=== PATIENT | female | born 1995 | race Two or more races ===

== ENCOUNTER 2024-08-16 15:10 | Emergency (ER) | payer MEDICAID, SELFPAY ==
[2024-08-16 15:17] VITALS: BP 125/81; PULSE 79; RESP 18; TEMP 36.9; O2SAT 99
--- NOTE | 2024-08-16 15:20 | XR_ITS ---
EXAMINATION: US OB <= 14 weeks fetus ORDERING PROVIDER: SONNY Mendoza HISTORY: vaginal bleeding TECHNIQUE: Multiplanar still ultrasonography of the pelvis was performed using grayscale imaging, supplemented by color and spectral Doppler as needed. Images were performed transabdominally . COMPARISON: None. FINDINGS: Last menstrual period 07/06/2024. Uterus measures 8.4 x 4.2 x 5.2 cm. There is an intrauterine fluid collection with irregular contour with mean diameter 1.7 cm. No yolk sac seen. No definite pole identified. Right ovary measures 2.0 x 1.8 x 1.3 cm and demonstrates Doppler signal. Left ovary measures 4.0 x 2.6 x 2.1 cm and demonstrates both color and Doppler signal. No free fluid. No adnexal masses. IMPRESSION: Irregular intrauterine fluid collection, possibly representing a gestational sac without yolk sac or pole. Given lack of comparison imaging, laboratory values, and transvaginal imaging, differential includes nonvisualized intrauterine , failed , and nonvisualized ectopic . Recommend close clinical follow-up, repeat beta-hCG imaging, and follow-up imaging as clinically indicated.
[2024-08-16 15:32] LABS: Collection Type, Urine Clean Catch
--- NOTE | 2024-08-16 15:32 | PD.EDPREG ---
ED OB Contraction Preg RMI/HPI General Chief complaint: OB/Uterine Contractions Stated complaint: SPOTTING/CRAMPING X 3 DAYS, PREG 6 WKS, Time Seen by Provider: 08/16/24 15:20 Source: patient Arrival date/time: 08/16/24 15:10 29-year-old female with no known medical history presents to the emergency room with a chief complaint of vaginal spotting and lower abdominal cramping x 3 days. Patient is currently 6 weeks she is a G2, P1. Mode of arrival: ambulatory Limitations: no limitations Related Data Home Medications ?Medication ?Instructions ?Recorded ?Confirmed metformin 500 mg tablet 1 tab PO QDAY 05/19/18 06/20/18 vit 122-ferrous fumarate 1 tab PO QDAY 05/19/18 06/20/18 27 mg iron-folic acid 800 mcg tablet ( Multi) Allergies Allergy/AdvReac Type Severity Reaction Status Date / Time No Known Allergies Allergy Verified 08/16/24 15:14 ED Exam General Limitations: Present no limitations Course Orders Category Date Time Status US OB <= 14 weeks fetus Stat Exams 08/16/24 15:20 Ordered ABO/RH Type Stat Lab 08/16/24 15:20 Ordered Beta HCG,Quantitative Stat Lab 08/16/24 15:20 Ordered CBC Stat Lab 08/16/24 15:20 Ordered CMP [Comprehensive Metabolic Panel] Stat Lab 08/16/24 15:20 Ordered UA [Urinalysis] Stat Lab 08/16/24 15:27 Received Vital Signs Vital signs: Vital Signs Temperature 98.4 F 08/16/24 15:17 Pulse Rate 79 08/16/24 15:17 Respiratory Rate 18 08/16/24 15:17 Blood Pressure 125/81 08/16/24 15:17 Pulse Oximetry (%) 99 08/16/24 15:17 Oxygen Delivery Method Room Air 08/16/24 15:17 Discharge Plan Prescriptions/Referrals Prescriptions/Med Rec: No Action metformin 500 mg Tablet 1 tab PO QDAY [id number] [ Multi] 27-800 mg-mcg Tablet 1 tab PO QDAY Patient/Caregiver Discharge Instructions Print Language: Setswana
[2024-08-16 15:41] LABS: Basophils % (Auto) 0 % (0-2.5); Eosinophils # (Auto) 0.1 Thou/mm3 (0.0-0.5); Eosinophils % (Auto) 1 % (0-10); Hematocrit 37.9 % (36.0-46.0); Hemoglobin 12.9 g/dL (12.0-16.0); Immature Granulocytes % (Auto) 0 % (0-0); Immature Granulocytes Auto 0.03 Thou/mm3 (0.00-0.00); Lymphocytes # (Auto) 2.6 Thou/mm3 (1.0-4.8); Lymphocytes % (Auto) 32 % (10-50); Mean Corpuscular Hemoglobin 29.5 pg (25.0-35.0); Mean Corpuscular Volume 87 fL (80-100); Monocytes # (Auto) 0.6 Thou/mm3 (0.0-0.8); Monocytes % (Auto) 7 % (0-12); Neutrophils # (Auto) 4.8 Thou/mm3 (1.8-7.7); Neutrophils % (Auto) 59 % (37-80); Nucleated Red Blood Cell % 0 /100 WBC (0); Platelet Count 315 Thou/mm3 (140-440); RDW Standard Deviation 41.9 fL (36.4-46.3); Red Blood Count 4.38 Miln/mm3 (4.00-5.20); White Blood Count 8.1 Thou/mm3 (3.6-11.0)
[2024-08-16 15:46] LABS: Bilirubin,Urine Negative (Negative); Blood,Urine 2+ (Negative); Clarity,Urine Clear (Clear/Hazy); Color,Urine Lt-Yellow (Lt Yel-Yel); Glucose, Urine Negative (Negative); Ketones,Urine Negative (Negative); Leukocyte Esterase,Urine Negative (Negative); Nitrite,Urine Negative (Negative); Protein,Urine Negative (Neg - Trace); RBC,Urine 2 /hpf (0-3); Specific Gravity,Urine 1.008 (1.001-1.035); Squamous Epithelial Cell,Urine 5 /hpf (0-5); Urobilinogen,Urine Negative mg/dL (0.0-1.0); WBC,Urine 1 /hpf (0-5)
[2024-08-16 16:05] LABS: Alanine Aminotransferase 19 U/L (10-49); Albumin, Serum 4.5 gm/dL (3.5-5.0); Albumin/Globulin Ratio 1.6 (1.2-2.2); Alkaline Phosphatase 69 U/L (46-116); Anion Gap 9 (7-16); Aspartate Amino Transferase 21 U/L (0-34); BUN/Creatinine Ratio 13 Ratio (12-20); Bilirubin,Total 0.3 mg/dL (0.3-1.2); Blood Urea Nitrogen 8 mg/dL (9-23); Carbon Dioxide 25.1 mMol/L (20.0-31.0); Chloride 105 mMol/L (98-107); Creatinine (Component) 0.6 mg/dL (0.6-1.3); Globulin 2.9 gm/dL (2.3-3.5); Glucose 88 mg/dL (74-106); Osmolality,Calculated 274 (275-295); Potassium 3.4 mMol/L (3.4-5.1); Sodium 139 mMol/L (136-145); Total Protein 7.4 gm/dL (5.7-8.2); eGFR > 60 See Note
--- NOTE | 2024-08-16 16:41 | XR_ITS ---
EXAMINATION: US OB transvaginal ORDERING PROVIDER: SONNY Mendoza HISTORY: Vaginal bleeding and pelvic pain x3 days. TECHNIQUE: Multiplanar still ultrasonography of the pelvis was performed using grayscale imaging, supplemented by color and spectral Doppler as needed. Images were performed transvaginally. COMPARISON: Same day transabdominal pelvic ultrasound. FINDINGS: Last menstrual period 07/06/2024. Uterus measures 8.3 x 4.5 x 5.5 cm. Gravid uterus with 2 intrauterine fluid collections. There is a septation measuring up to 2 mm. 2 separate yolk sacs are identified. No subchorionic hemorrhage is identified. Sac A measures 1.2 cm correlating with sonographic age of 6 weeks 0 days. Sac B also measures 1.2 cm corresponding to sonographic age is 6 weeks 0 days. No pole is seen in either. Clinical dates 5 weeks 6 days. Right ovary measures 2.9 x 2.3 x 3.0 cm and demonstrates Doppler signal. Left ovary measures 2.8 x 3.1 x 2.9 cm and demonstrates both color and Doppler signal. Probable left corpus luteum. No free fluid. No adnexal masses. IMPRESSION: Multifetal with 2 yolk sacs identified, but no pole yet seen. There is concordance with clinical and sonographic dates. Favor dichorionic diamniotic , though differential also includes monochorionic diamniotic . Recommend close clinical and imaging follow-up.
[2024-08-16 16:46] LABS: Beta HCG,Quantitative 23747 mIU/mL (<5.0)
--- NOTE | 2024-08-16 20:55 | PD.EDPREG ---
ED OB Contraction Preg RMI/HPI General Chief complaint: OB/Uterine Contractions Stated complaint: SPOTTING/CRAMPING X 3 DAYS, PREG 6 WKS, Time Seen by Provider: 08/16/24 15:20 Source: patient Arrival date/time: 08/16/24 15:10 This is a 29-year-old female that comes in with complaints of abdominal cramping and some spotting for the last 3 days. Patient thinks she is approximately 6 weeks . Patient is a 2 para 1. Mode of arrival: ambulatory Limitations: no limitations Related Data Home Medications ?Medication ?Instructions ?Recorded ?Confirmed metformin 500 mg tablet 1 tab PO QDAY 05/19/18 06/20/18 vit 122-ferrous fumarate 1 tab PO QDAY 05/19/18 06/20/18 27 mg iron-folic acid 800 mcg tablet ( Multi) Allergies Allergy/AdvReac Type Severity Reaction Status Date / Time No Known Allergies Allergy Verified 08/16/24 15:14 ED Exam General Limitations: Present no limitations Course Orders Category Date Time Status US OB <= 14 weeks fetus Stat Exams 08/16/24 15:20 Completed US OB transvaginal Stat Exams 08/16/24 16:41 Completed ABO/RH Type Stat Lab 08/16/24 15:30 Completed Beta HCG,Quantitative Stat Lab 08/16/24 15:30 Completed CBC Stat Lab 08/16/24 15:30 Completed CMP [Comprehensive Metabolic Panel] Stat Lab 08/16/24 15:30 Completed UA [Urinalysis] Stat Lab 08/16/24 15:27 Completed Vital Signs Vital signs: Vital Signs Temperature 98.4 F 08/16/24 15:17 Pulse Rate 79 08/16/24 15:17 Respiratory Rate 18 08/16/24 15:17 Blood Pressure 125/81 08/16/24 15:17 Pulse Oximetry (%) 99 08/16/24 15:17 Oxygen Delivery Method Room Air 08/16/24 15:17 OB/Uterine Contractions MDM Narrative MDM Narrative:: US: IMPRESSION: Irregular intrauterine fluid collection, possibly representing a gestational sac without yolk sac or pole. Given lack of comparison imaging, laboratory values, and transvaginal imaging, differential includes nonvisualized intrauterine , failed , and nonvisualized ectopic . Recommend close clinical follow-up, repeat beta-hCG imaging, and follow-up imaging as clinically indicated. Transvaginal US: FINDINGS: Last menstrual period 07/06/2024. Uterus measures 8.3 x 4.5 x 5.5 cm. Gravid uterus with 2 intrauterine fluid collections. There is a septation measuring up to 2 mm. 2 separate yolk sacs are identified. No subchorionic hemorrhage is identified. Sac A measures 1.2 cm correlating with sonographic age of 6 weeks 0 days. Sac B also measures 1.2 cm corresponding to sonographic age is 6 weeks 0 days. No pole is seen in either. Clinical dates 5 weeks 6 days. Right ovary measures 2.9 x 2.3 x 3.0 cm and demonstrates Doppler signal. Left ovary measures 2.8 x 3.1 x 2.9 cm and demonstrates both color and Doppler signal. Probable left corpus luteum. No free fluid. No adnexal masses. IMPRESSION: Multifetal with 2 yolk sacs identified, but no pole yet seen. There is concordance with clinical and sonographic dates. Favor dichorionic diamniotic , though differential also includes monochorionic diamniotic . Recommend close clinical and imaging follow-up. Patient's white count is 8.1, hemoglobin and hematocrit is 12.9 and 37.9 platelet count is 315. Patient's BNP unremarkable beta-hCG quant is 23,747 urine shows some blood but otherwise unremarkable. Patient is O+. I discussed with patient at length. 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 I will take her off work until next week on Wednesday.. I let her know that she is at risk for losing . Patient verbalizes understanding. Will send patient home at this time. Patient having no urinary symptoms at this time. Patient feels comfortable going home at this time. Discharge Plan Plan Patient Disposition: HOME (Self Care) Patient condition on transfer: Stable Prescriptions/Referrals Prescriptions/Med Rec: No Action metformin 500 mg Tablet 1 tab PO QDAY [id number] [ Multi] 27-800 mg-mcg Tablet 1 tab PO QDAY Referrals: Bravo Ortega MD [Primary Care Provider] - In 1 week Problem List Clinical Impression: Threatened miscarriage, Patient/Caregiver Discharge Instructions Discharge Activity: activity as tolerated Education Materials: Your First Trimester ..., Understanding Miscarriage ... Additional Instructions: Jaime un gladis con ramsey medico de cabecera en las proximas 24-48 horas. Regrese a la main de emergencias si hay evidencia de que los signos o sintomas empeoran. US: IMPRESSION: Irregular intrauterine fluid collection, possibly representing a gestational sac without yolk sac or pole. Given lack of comparison imaging, laboratory values, and transvaginal imaging, differential includes nonvisualized intrauterine , failed , and nonvisualized ectopic . Recommend close clinical follow-up, repeat beta-hCG imaging, and follow-up imaging as clinically indicated. Transvaginal US: FINDINGS: Last menstrual period 07/06/2024. Uterus measures 8.3 x 4.5 x 5.5 cm. Gravid uterus with 2 intrauterine fluid collections. There is a septation measuring up to 2 mm. 2 separate yolk sacs are identified. No subchorionic hemorrhage is identified. Sac A measures 1.2 cm correlating with sonographic age of 6 weeks 0 days. Sac B also measures 1.2 cm corresponding to sonographic age is 6 weeks 0 days. No pole is seen in either. Clinical dates 5 weeks 6 days. Right ovary measures 2.9 x 2.3 x 3.0 cm and demonstrates Doppler signal. Left ovary measures 2.8 x 3.1 x 2.9 cm and demonstrates both color and Doppler signal. Probable left corpus luteum. No free fluid. No adnexal masses. IMPRESSION: Multifetal with 2 yolk sacs identified, but no pole yet seen. There is concordance with clinical and sonographic dates. Favor dichorionic diamniotic , though differential also includes monochorionic diamniotic . Recommend close clinical and imaging follow-up. Print Language: Irish Stand Alone Forms: Bren Award Info., Work/School Release, Patient Portal Info Letter PA/SONNY Supervising Physician PA/SONNY Supervising Physician: brittany
[2024-08-16 21:08] VITALS: BP 120/80; PULSE 92; RESP 19; TEMP 36.9; O2SAT 98
--- NOTE | 2024-08-20 06:20 | PD.EDRME ---
Rapid Medical Screening Exam RME Arrival date/time: 08/16/24 15:10 29-year-old female with no known medical history presents to the emergency room with a chief complaint of vaginal spotting and lower abdominal cramping x 3 days. Patient is currently 6 weeks she is a G2, P1. I have greeted and performed a focused initial assessment of this patient. A comprehensive ED assessment and evaluation of the patient, analysis of all test results, and completion of the medical decision making process will be conducted by additional ED providers. Chief Complaint: OB/Uterine Contractions Time Seen by Provider: 08/16/24 15:20 Vital signs: Vital Signs Temperature 98.4 F 08/16/24 15:17 Pulse Rate 79 08/16/24 15:17 Respiratory Rate 18 08/16/24 15:17 Blood Pressure 125/81 08/16/24 15:17 Pulse Oximetry (%) 99 08/16/24 15:17 Oxygen Delivery Method Room Air 08/16/24 15:17 Vital signs reviewed by provider: Yes
== END 2024-08-16 21:27 | disposition home or self-care (01) ==
PROVIDERS: Nurse Practitioner Family; Emergency Provider Emergency Medicine; PCP Obstetrics & Gynecology
DX: O20.0 Threatened abortion (principal); Z3A.01 Less than 8 weeks gestation of pregnancy
CPT/HCPCS: 36415; 76801; 76817; 80053; 81001; 84702; 85025; 86900; 86901; 99284

== ENCOUNTER 2025-01-24 14:27 | Outpatient (AMB) | payer MEDICAID, SELFPAY ==
--- NOTE | 2025-01-24 14:39 | AMB.OBINITIA ---
Vital Signs 01/24/25 14:44 Height 1.55 m Height Method Stated Weight 76.771 kg Weight Measurement Method Standing Scale BMI 31.9 BP 111/69 Blood Pressure Source Automatic Cuff Blood Pressure Location Left Upper Arm Position Sitting Respiration 18 Pulse 91 Pulse Source Monitor Temp 97.9 F Temp Source Oral Pulse Oximetry (%) 96 Oxygen Delivery Method Room Air Allergies/Home Meds Allergies & Medications Allergies No Known Allergies Allergy (Verified 01/24/25 14:45) Medication Reconciliation metformin 500 mg tablet 1 tab PO QDAY 05/19/18 [History Confirmed 01/24/25] vit 122-ferrous fumarate 27 mg iron-folic acid 800 mcg tablet ( Multi) 1 tab PO QDAY 05/19/18 [History Confirmed 01/24/25] Intake Visit Data Collection New Patient or Established: Established Patient (seen at [facility] within 3 years) Reason for Visit:: CARE Seen by Clinical Staff ONLY (RN/MA): No Customer Relations Consultant Required: Yes Customer Relations Consultant's name/title: TONYA CHOI Do You Feel Safe at Home: Yes Authorities Contacted: N/A PCP or OBGYN visit in last 3 months: Yes Hx Now: Yes Are you currently on any form of Control: No Last menstrual period: 07/06/24 Pain Present Currently: No Pain Scale Used: Orr-Oconnor/Numerical Pain scale:: 0 Smoking Status Smoking Status: Never smoker Questionnaires Covid-19 Vaccine Questionnaire Has patient been vacinated for Covid-19 Have you been vacinated for Covid-19: Yes PHQ-9 PHQ-2 Over the last 2 weeks, how often have you been bothered by any of the following problems? 1. Little interest or pleasure in doing things: not at all 2. Feeling down, depressed, or hopeless: not at all Total score: 0 PHQ-9 3. Trouble falling or staying asleep, or sleeping too much: Not at all 4. Feeling tired or having little energy: Not at all 5. Poor appetite or overeating: Not at all 6. Feeling bad about yourself - or that you are a failure or have let yourself or your family down: Not at all 7. Trouble concentrating on things, such as reading the newspaper or watching television: Not at all 8. Moving or speaking so slowly that other people could have noticed? - Or the opposite - being so fidgety or restless that you have been moving around a lot more than usual: not at all 9. Thoughts that you would be better off or of hurting yourself in some way: Not at all Total score: 0 Source: Developed by Drs. Bashir Cantrell, Yelena Quintero, Blaze Belle and colleagues, with an educational perla from [employer]. Depression screen completed yes Social History Living Situation History Marital Status: Life Partner Lives With: Family Housing: House Tobacco History Smoking Status: Never smoker Second Hand Smoke Exposure: No Alcohol History Alcohol Intake: Never Domestic Abuse History Do You Feel Safe at Home: Yes History of Present Illness HPI Narrative Patient is a woman with a history of previous and gestational diabetes, presenting for transfer of care from Dr. Ortega at [facility]. She is currently 1001 with a due date of 04/29/2025 established by first-trimester ultrasound. The patient's initially started as twins, but one fetus did not develop further. She has a history of gestational diabetes and is currently monitoring her blood sugar levels at home, having started yesterday. Recently, she was hospitalized for six days due to kidney stones. She is currently taking amoxicillin, metformin, iron, fluconazole, and metronidazole as prescribed by Dr. Ortega. She expresses a desire to return to work but needs a letter stating she is open to working but not going back at this time. Her benefits have ended, and she requires documentation from today's date to address this issue. Medical History: - Gestational diabetes - Kidney stones, requiring hospitalization for six days Surgical History: - section performed by Dr. 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: Past Medical History Past Medical History: No Hx Neurological Disorders, No Hx Breast Cancer, No Hx Cardiac Disorders, No Hx Blood Disorders, No Hx Gastrointestinal Disorders, No Hx Renal Disease, No Hx Diabetes Mellitus Type 1 and Yes Hx Diabetes Mellitus Type 2 (PARENTS TYPE UNKNOWN TAKE ORAL ANTIDIABETIC MEDS) OB Initial Visit OB Flowsheet OB Flowsheet Initial Weight: Not Recorded Date <del>?</del> EGA Weight BP Alb Glu CTX Pres Fundal ht FHR Mov Dilation Station Effacement Hx Notes Visit Note 01/24/25 <del>?</del> 26w 1d 76.771 kg 111/69 absent unknown 27 145 active 26w w/ hx of prior CS, GDM, and single IUFD (initial twin gestation); recent admission for kidney stones. FHR nl Plan: FU 2w, refer ZULY Pratt, monitor at hospital, plan CS ~38?39w, continue amoxicillin, metformin, Fe, fluconazole, metronidazole; review glucose logs; extend disability with letter. Menstrual History Menstrual reliability: definite Flow: normal Menstrual regularity: regular Monthly: Yes Age at menarche: 12 On control pills at conception: No Associated symptoms (LMP): Reports fatigue OB History : 2 Para: 1 # of Living Children: 0 Delivery History 1st : Child's name: ALIZE date: 06/18/18 sex: female Gestational age at delivery (weeks): 39 Delivery type: Delivery complications: NONE History of depression before or after : No Infection History & Risk Evaluation History of STDs: none Genetic Screening & History Genetic Screening/Teratology Counseling - Includes patient, baby's father, or anyone in either family with: 1. Patient's age 35 years or older as of estimated date of delivery: No 2. Thalassemia (Maori, Portuguese, Mediterranean, or Background); MCV less than 80: No 3. Neural Tube Defect (Meningomyelocele, Spina Bifida, or Anencephaly): No 4. Congenital Heart Defect: No 5. Down Syndrome: No 6. Vik-Sachs (Ashkenazi Jew, Cajun, Wolof Marshallese): No 7. Noel Disease (Ashkenazi Jew): No 8. Familial Dysautonomia (Ashkenazi Jew): No 9. Sickle Cell Disease or Trait (): No 10. Hemophilia or other blood disorders: No 11. Muscular Dystrophy: No 12. Cystic Fibrosis: No 13. Chet's Chorea: No 14. Mental Retardation/Autism: No 15. Other inherited genetic or chromosomal disorder: No 16. Maternal Metabolic Disorder (EG,TYPE 1 Diabetes, PKU): No 17. Patient or baby's father had a child with defects not listed above: No 18. Recurrent loss or a stillbirth: No 19. Medications (including supplements, vitamins, herbs or otc drugs)/illicit/recreational drugs/alcohol since last menstrual period: No 20. Any other: No Infection History 1. Live with someone with TB or exposed to TB: No 2. Rash or viral illness since last menstrual period: No 3. Hepatitis B,C: No Other (see comments) Source: [employer] Review of Systems Constitutional Constitutional: Reports fatigue Endocrine Endocrine: Reports fatigue Office Procedures OB Clinic LOC & Office Proc's Nursing/Assessment Patient Status: Established Patient OB Clinic Nursing Assessment: Medication Reconciliation, Update PMH in EMR and Vital Signs OB Clinic Coordination of Care: Complex Care and Chronic Disease 1-5, Consent,records obtained, informed consent, Education Simp Pt/Fam, Lab and Imaging orders, Results/Orders obtained and Staff clarify orders Special Needs: Heart tones Established Patient Charge Established Patient Point Assignment: 135 Established Patient Point Charge: EP Level 4 (120-155) Assessment & Plan Diagnosis / Problem List (1) Supervision of high risk , unspecified, third trimester: Status: Acute Plan , intrauterine, 26 weeks Assessment: Patient is at 26 weeks gestation based on last menstrual period of 09/03/2024, with due date established by first-trimester ultrasound as 04/29/2025. This is a high-risk due to multiple factors including previous , gestational diabetes, and initial twin gestation with subsequent demise of one fetus. Patient was recently hospitalized for kidney stones. Plan: - Return visit in two weeks - Referral to high-at risk paraprofessional in [place] - Arrange for hospital monitoring - Plan for at 38 or 39 weeks depending on glucose levels, to be performed in [place] or [place] - Continue current medications: amoxicillin, metformin, iron, fluconazole, and metronidazole Gestational Diabetes Assessment: Patient has been diagnosed with gestational diabetes based on abnormal glucose tolerance test results. One-hour glucose tolerance was 165, A1c 5.7. Three-hour glucose tolerance showed values of 98 fasting, 216 at one hour, 172 at two hours, and 112 at three hours. Plan: - Continue metformin - Patient to check blood glucose levels at home and record all numbers - Bring glucose log to next visit for review Employment and Disability Concerns Assessment: Patient expresses desire to return to work but requires extension of disability benefits. Current benefits have ended. Plan: - Provide letter stating patient is open to working but not returning to work at this time - Letter to be dated from today's visit
[2025-01-24 14:44] VITALS: BP 111/69; PULSE 91; RESP 18; TEMP 36.6; O2SAT 96; BMI 31.9
== END 2025-01-24 15:06 | disposition home or self-care (01) ==
LOC: HODSOBC 14:27
PROVIDERS: Supervising Provider Obstetrics & Gynecology; Visit Provider Obstetrics & Gynecology
DX: O09.292 Supervision of pregnancy with other poor reproductive or obstetric history, second trimester (principal); O34.219 Maternal care for unspecified type scar from previous cesarean delivery; O09.892 Supervision of other high risk pregnancies, second trimester; O24.415 Gestational diabetes mellitus in pregnancy, controlled by oral hypoglycemic drugs; Z3A.26 26 weeks gestation of pregnancy
CPT/HCPCS: 99214; G0463

== ENCOUNTER 2025-02-09 08:25 | Outpatient (AMB) | payer MEDICAID, SELFPAY ==
[2025-02-09 08:44] VITALS: BP 113/70; PULSE 102; RESP 20; TEMP 36.8; O2SAT 98; BMI 32.1
--- NOTE | 2025-02-09 08:44 | OBCLNT_ITS ---
Vital Signs 02/09/25 08:44 Height 1.55 m Height Method Stated Weight 77.281 kg Weight Measurement Method Standing Scale BMI 32.1 BP 113/70 Blood Pressure Source Automatic Cuff Blood Pressure Location Left Upper Arm Position Sitting Respiration 20 Pulse 102 H Pulse Source Monitor Temp 98.2 F Temp Source Oral Pulse Oximetry (%) 98 Oxygen Delivery Method Room Air Allergies/Home Meds Allergies & Medications Allergies No Known Allergies Allergy (Verified 02/09/25 08:46) Medication Reconciliation metformin 500 mg tablet 1 tab PO QDAY 05/19/18 [History Confirmed 02/09/25] vit 122-ferrous fumarate 27 mg iron-folic acid 800 mcg tablet ( Multi) 1 tab PO QDAY 05/19/18 [History Confirmed 02/09/25] Intake Visit Data Collection New Patient or Established: Established Patient (seen at [facility] within 3 years) Reason for Visit:: CARE Seen by Clinical Staff ONLY (RN/MA): No Corporate Coordinator Required: No Do You Feel Safe at Home: Yes Authorities Contacted: N/A PCP or OBGYN visit in last 3 months: Yes Hx Now: Yes Are you currently on any form of Control: No Pain Present Currently: No Pain Scale Used: Orr-Oconnor/Numerical Pain scale:: 0 Smoking Status Smoking Status: Never smoker Questionnaires Covid-19 Vaccine Questionnaire Has patient been vacinated for Covid-19 Have you been vacinated for Covid-19: Yes PHQ-9 PHQ-2 Over the last 2 weeks, how often have you been bothered by any of the following problems? 1. Little interest or pleasure in doing things: not at all 2. Feeling down, depressed, or hopeless: not at all Total score: 0 PHQ-9 3. Trouble falling or staying asleep, or sleeping too much: Not at all 4. Feeling tired or having little energy: Not at all 5. Poor appetite or overeating: Not at all 6. Feeling bad about yourself - or that you are a failure or have let yourself or your family down: Not at all 7. Trouble concentrating on things, such as reading the newspaper or watching television: Not at all 8. Moving or speaking so slowly that other people could have noticed? - Or the opposite - being so fidgety or restless that you have been moving around a lot more than usual: not at all 9. Thoughts that you would be better off or of hurting yourself in some way: Not at all Total score: 0 Source: Developed by Drs. Bashir Cantrell, Yelena Quintero, Blaze Belle and colleagues, with an educational perla from [employer]. 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 Past Medical History: No Hx Neurological Disorders, No Hx Breast Cancer, No Hx Cardiac Disorders, No Hx Blood Disorders, No Hx Gastrointestinal Disorders, No Hx Renal Disease, No Hx Diabetes Mellitus Type 1 and Yes Hx Diabetes Mellitus Type 2 (PARENTS TYPE UNKNOWN TAKE ORAL ANTIDIABETIC MEDS) Care OB Visit Log OB Flowsheet Initial Weight: Not Recorded Date -?-?-?-?-?-?-?-?-?-?-?-?- EGA Weight BP Alb Glu CTX Pres Fundal ht FHR Mov Dilation Station Effacement Hx Notes Visit Note 01/24/25 -?-?-?-?-?-?-?-?-?-?-?-?- 26w 1d 76.771 kg 111/69 absent unknown 27 145 active 26w w/ hx of prior CS, GDM, and single IUFD (initial twin gestation); recent admission for kidney stones. FHR nl Plan: FU 2 w, refer ZULY Pratt, monitor at hospital, plan CS ~38?39w, continue amoxicillin, metformin, Fe, fluconazole, metronidazole; review glucose logs; extend disability with letter. 02/09/25 -?-?-?-?-?-?-?-?-?-?-?-?- 28w 3d 77.281 kg 113/70 absent unknown 29 149 active Patient has a history of prior delivery. - initially started as twin ge station, with demise of one fetus. - Recent medical history: - Hospitalization for kidney stones - Current GDM management: - Patient is on metformin - Blood glucose readings are reported as very good numbers - All fasting glucose levels are below 100 mg/dL - Patient is adherent to glucose monit oring No contractions, LOF, VB and reports goo d FM. Denies URRUTIA, VC, and epigastric pain. Plan - Continue monitoring blood glucose leve ls - Await MFM ultrasound results from Vishanh cedric - Follow up in 2 weeks for laboratory te sts - Continue metformin as prescribed KENIA Calculator Estimated Delivery Date Method Current WG Current Estimate 05/01/25 Ultrasound #1 28w 3d Other Estimates 04/12/25 LMP (Certain) 31w 1d Office Procedures OB Clinic LOC & Office Proc's Nursing/Assessment Patient Status: Established Patient OB Clinic Nursing Assessment: Medication Reconciliation, Update PMH in EMR and Vital Signs OB Clinic Coordination of Care: Complex Care and Chronic Disease 1-5, Consent,records obtained, informed consent, Education Simp Pt/Fam, 1 Ins Authorization, Results/Orders obtained and Staff clarify orders Special Needs: Heart tones Established Patient Charge Established Patient Point Assignment: 135 Established Patient Point Charge: EP Level 4 (120-155) Assessment & Plan Diagnosis / Problem List (1) Supervision of high risk , unspecified, third trimester: Status: Acute
== END 2025-02-09 09:27 | disposition home or self-care (01) ==
PROVIDERS: Supervising Provider Obstetrics & Gynecology; Visit Provider Obstetrics & Gynecology
DX: O09.293 Supervision of pregnancy with other poor reproductive or obstetric history, third trimester (principal); O34.219 Maternal care for unspecified type scar from previous cesarean delivery; O09.893 Supervision of other high risk pregnancies, third trimester; O24.415 Gestational diabetes mellitus in pregnancy, controlled by oral hypoglycemic drugs; Z3A.28 28 weeks gestation of pregnancy
CPT/HCPCS: 99214; G0463

== ENCOUNTER 2025-02-26 09:24 | Outpatient (AMB) | payer MEDICAID, SELFPAY ==
[2025-02-26 09:42] VITALS: BP 130/73; PULSE 100; RESP 18; TEMP 36.6; O2SAT 98; BMI 32.7
--- NOTE | 2025-02-26 09:42 | OBCLNT_ITS ---
Vital Signs 02/26/25 09:42 Height 1.55 m Height Method Stated Weight 78.585 kg Weight Measurement Method Standing Scale BMI 32.7 BP 130/73 Blood Pressure Source Automatic Cuff Blood Pressure Location Left Upper Arm Position Sitting Respiration 18 Pulse 100 Pulse Source Monitor Temp 97.8 F Temp Source Oral Pulse Oximetry (%) 98 Oxygen Delivery Method Room Air Allergies/Home Meds Allergies & Medications Allergies No Known Allergies Allergy (Verified 02/26/25 09:43) Medication Reconciliation metformin 500 mg tablet 1 tab PO QDAY 05/19/18 [History Confirmed 02/26/25] vit 122-ferrous fumarate 27 mg iron-folic acid 800 mcg tablet ( Multi) 1 tab PO QDAY 05/19/18 [History Confirmed 02/26/25] Intake Visit Data Collection New Patient or Established: Established Patient (seen at [facility] within 3 years) Reason for Visit:: CARE Seen by Clinical Staff ONLY (RN/MA): No Desk Monitor Required: No Do You Feel Safe at Home: Yes Authorities Contacted: N/A PCP or OBGYN visit in last 3 months: Yes Hx Now: Yes Are you currently on any form of Control: No Pain Present Currently: No Pain Scale Used: Orr-Oconnor/Numerical Pain scale:: 0 Smoking Status Smoking Status: Never smoker Questionnaires Covid-19 Vaccine Questionnaire Has patient been vacinated for Covid-19 Have you been vacinated for Covid-19: Yes PHQ-9 PHQ-2 Over the last 2 weeks, how often have you been bothered by any of the following problems? 1. Little interest or pleasure in doing things: not at all 2. Feeling down, depressed, or hopeless: not at all Total score: 0 PHQ-9 3. Trouble falling or staying asleep, or sleeping too much: Not at all 4. Feeling tired or having little energy: Not at all 5. Poor appetite or overeating: Not at all 6. Feeling bad about yourself - or that you are a failure or have let yourself or your family down: Not at all 7. Trouble concentrating on things, such as reading the newspaper or watching television: Not at all 8. Moving or speaking so slowly that other people could have noticed? - Or the opposite - being so fidgety or restless that you have been moving around a lot more than usual: not at all 9. Thoughts that you would be better off or of hurting yourself in some way: Not at all Total score: 0 Source: Developed by Drs. Bashir Cantrell, Yelena Quintero, Blaze Belle and colleagues, with an educational perla from [employer]. 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 Past Medical History: No Hx Neurological Disorders, No Hx Breast Cancer, No Hx Cardiac Disorders, No Hx Blood Disorders, No Hx Gastrointestinal Disorders, No Hx Renal Disease, No Hx Diabetes Mellitus Type 1 and Yes Hx Diabetes Mellitus Type 2 (PARENTS TYPE UNKNOWN TAKE ORAL ANTIDIABETIC MEDS) Care OB Visit Log OB Flowsheet Initial Weight: Not Recorded Date -?-?-?-?-?-?-?-?-?-?-?-?- EGA Weight BP Alb Glu CTX Pres Fundal ht FHR Mov Dilation Station Effacement Hx Notes Visit Note 01/24/25 -?-?-?-?-?-?-?-?-?-?-?-?- 26w 1d 76.771 kg 111/69 absent unknown 27 145 active 26w w/ hx of prior CS, GDM, and single IUFD (initial twin gestation); recent admission for kidney stones. FHR nl Plan: FU 2 w, refer ZULY Pratt, monitor at hospital, plan CS ~38?39w, continue amoxicillin, metformin, Fe, fluconazole, metronidazole; review glucose logs; extend disability with letter. 02/09/25 -?-?-?-?-?-?-?-?-?-?-?-?- 28w 3d 77.281 kg 113/70 absent unknown 29 149 active Patient has a history of prior delivery. - initially started as twin ge station, with demise of one fetus. - Recent medical history: - Hospitalization for kidney stones - Current GDM management: - Patient is on metformin - Blood glucose readings are reported as very good numbers - All fasting glucose levels are below 100 mg/dL - Patient is adherent to glucose monit oring No contractions, LOF, VB and reports goo d FM. Denies URRUTIA, VC, and epigastric pain. Plan - Continue monitoring blood glucose ramila rodriguez - Await MFM ultrasound results from Laureano steele - Follow up in 2 weeks for laboratory te sts - Continue metformin as prescribed 02/26/25 -?-?-?-?-?-?-?-?-?-?-?-?- 30w 6d 78.585 kg 130/73 absent unknown 31 143 active Denies URRUTIA, VC, and epigastric pain. - Loly Solomon is a pa tient at 30 weeks and 6 days gestation with gestational diabetes mellitus (GDM) on metformin. - Patient reports: - Good adherence to metformin regimen - movement present - Occasional uterine tightening with a ssociated pain - Occurs every 5 minutes - Patient educated on differentiatin g between normal Luther Hu contractions and concerning symptoms - Blood sugar levels: - Generally well-controlled - One instance of elevated blood sugar noted - No reported concerns or complications since last visit - Labs ordered: CBC, A1C - Follow up appointment in 2 weeks - Continue metformin for gestational rivera betes management - Fax non-stress test (NST) order to beg in at 32 weeks - Patient instructed to continue monitor ing blood glucose levels - Tentative delivery date discussed (reji boothjayden 38-39 weeks) KENIA Calculator Estimated Delivery Date Method Current WG Current Estimate 05/01/25 Ultrasound #1 31w 0d Other Estimates 04/12/25 LMP (Certain) 33w 5d Assessment & Plan Diagnosis / Problem List (1) Supervision of high risk , unspecified, third trimester: Status: Acute (2) Gestational diabetes: Status: Acute Plan Problem List - Gestational diabetes mellitus - , 30 weeks and 6 days Assessment at 30 weeks and 6 days gestation with gestational diabetes mellitus (GDM) on metformin. Patient had elevated glucose challenge test (GCT) followed by a 3-hour glucose tolerance test (GTT) with values of 76, 45, and 51. Blood glucose levels are generally well-controlled with one instance of elevated readings. heart rate is 143 bpm, which is within normal range. Patient reports intermittent uterine tightening, consistent with Garland Hu contractions. Anemia screening and HbA1c testing are planned for today's visit. Plan - Labs ordered: CBC, A1C - Follow up appointment in 2 weeks - Continue metformin for gestational diabetes management - Fax non-stress test (NST) order to begin at 32 weeks - Patient instructed to continue monitoring blood glucose levels - Tentative delivery date discussed (between 38-39 weeks) 1. Progress Reviewed gestational age, growth, and heart rate. Planned frequent visits (every 2 weeks until 36 weeks, then weekly). 2. Instructed patient to monitor movements and report decreases immediately. 3. Testing Counseled on routine third-trimester labs per guidelines. Discussed potential need for ultrasound or monitoring based on risk factors. 4. Preeclampsia Precaution Educated on preeclampsia signs: severe headache, vision changes, right upper quadrant pain, sudden swelling. Advised urgent reporting of symptoms and discussed blood pressure monitoring if high risk. 5. Labor Precautions Reviewed labor signs: regular contractions, pelvic pressure, back pain, bleeding, or fluid leakage. Instructed to seek immediate care for these symptoms. 6. Lifestyle and Delivery Preparation Reinforced vitamins, nutrition, and safe activity. Discussed plan, pain management, and . Advised on labor preparation (e.g., hospital bag) and expectations. 7. Psychosocial Support Assessed emotional well-being and offered resources for mental health or parenting support.
== END 2025-02-26 10:39 | disposition home or self-care (01) ==
LOC: HODSOBC 09:24
PROVIDERS: Supervising Provider Obstetrics & Gynecology; Visit Provider Obstetrics & Gynecology
DX: O09.893 Supervision of other high risk pregnancies, third trimester (principal); O24.415 Gestational diabetes mellitus in pregnancy, controlled by oral hypoglycemic drugs; Z3A.30 30 weeks gestation of pregnancy
CPT/HCPCS: 99214; G0463

== ENCOUNTER 2025-03-12 09:15 | Outpatient (AMB) | payer MEDICAID, SELFPAY ==
[2025-03-12 09:21] VITALS: BP 114/74; PULSE 111; RESP 17; TEMP 36.6; O2SAT 98; BMI 32.1
--- NOTE | 2025-03-12 09:21 | OBCLNT_ITS ---
Vital Signs 03/12/25 09:21 Height 1.55 m Height Method Stated Weight 77.224 kg Weight Measurement Method Standing Scale BMI 32.1 BP 114/74 Blood Pressure Source Automatic Cuff Blood Pressure Location Right Upper Arm Position Sitting Respiration 17 Pulse 111 H Pulse Source Monitor Temp 97.8 F Temp Source Temporal Artery Scan Pulse Oximetry (%) 98 Oxygen Delivery Method Room Air Allergies/Home Meds Allergies & Medications Allergies No Known Allergies Allergy (Verified 04/02/25 13:32) Medication Reconciliation metformin 500 mg tablet 1 tab PO QDAY 05/19/18 [History Confirmed 04/02/25] vit 122-ferrous fumarate 27 mg iron-folic acid 800 mcg tablet ( Multi) 1 tab PO QDAY 05/19/18 [History Confirmed 04/02/25] Intake Visit Data Collection New Patient or Established: Established Patient (seen at [facility] within 3 years) Reason for Visit:: C [id number] Seen by Clinical Staff ONLY (RN/MA): No Court Worker Required: Yes Court Worker's name/title: TONYA CHOI MA Do You Feel Safe at Home: Yes Authorities Contacted: N/A PCP or OBGYN visit in last 3 months: Yes Date of Last PCP or OBGYN visit: 03/08/25 Hx Now: Yes Are you currently on any form of Control: No Pain Present Currently: No Pain Scale Used: Orr-Oconnor/Numerical Smoking Status Smoking Status: Never smoker Questionnaires Covid-19 Vaccine Questionnaire Has patient been vacinated for Covid-19 Have you been vacinated for Covid-19: No PHQ-9 PHQ-2 Over the last 2 weeks, how often have you been bothered by any of the following problems? 1. Little interest or pleasure in doing things: not at all 2. Feeling down, depressed, or hopeless: not at all Total score: 0 PHQ-9 3. Trouble falling or staying asleep, or sleeping too much: Not at all 4. Feeling tired or having little energy: Not at all 5. Poor appetite or overeating: Not at all 6. Feeling bad about yourself - or that you are a failure or have let yourself or your family down: Not at all 7. Trouble concentrating on things, such as reading the newspaper or watching television: Not at all 8. Moving or speaking so slowly that other people could have noticed? - Or the opposite - being so fidgety or restless that you have been moving around a lot more than usual: not at all 9. Thoughts that you would be better off or of hurting yourself in some way: Not at all Total score: 0 If you checked off any problems, how difficult have these problems made it for you to do your work, take care of things at home, or get along with other people?: not difficult at all Source: Developed by Drs. Bashir Cantrell, Yelena Quintero, Blaze Belle and colleagues, with an educational perla from [employer]. 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 Past Medical History: No Hx Neurological Disorders, No Hx Breast Cancer, No Hx Cardiac Disorders, No Hx Blood Disorders, No Hx Gastrointestinal Disorders, No Hx Renal Disease, No Hx Diabetes Mellitus Type 1 and Yes Hx Diabetes Mellitus Type 2 (PARENTS TYPE UNKNOWN TAKE ORAL ANTIDIABETIC MEDS) Care OB Visit Log OB Flowsheet Initial Weight: Not Recorded Date -?-?-?-?-?-?-?-?-?-?-?-?- EGA Weight BP Alb Glu CTX Pres Fundal ht FHR Mov Dilation Station Effacement Hx Notes Visit Note 01/24/25 -?-?-?-?-?-?-?-?-?-?-?-?- 28w 6d 76.771 kg 111/69 absent unknown 27 145 active 26w w/ hx of prior CS, GDM, and single IUFD (initial twin gestation); recent admission for kidney stones. FHR nl Plan: FU 2 w, refer ZULY Pratt, monitor at hospital, plan CS ~38?39w, continue amoxicillin, metformin, Fe, fluconazole, metronidazole; review glucose logs; extend disability with letter. 02/09/25 -?-?-?-?-?-?-?-?-?-?-?-?- 31w 1d 77.281 kg 113/70 absent unknown 29 149 active Patient has a history of prior delivery. - initially started as twin ge station, with demise of one fetus. - Recent medical history: - Hospitalization for kidney stones - Current GDM management: - Patient is on metformin - Blood glucose readings are reported as very good numbers - All fasting glucose levels are below 100 mg/dL - Patient is adherent to glucose monit oring No contractions, LOF, VB and reports goo d FM. Denies URRUTIA, VC, and epigastric pain. Plan - Continue monitoring blood glucose ramila ls - Await MFM ultrasound results from [facility] cedric - Follow up in 2 weeks for laboratory te sts - Continue metformin as prescribed 02/26/25 -?-?-?-?-?-?-?-?-?-?-?-?- 33w 4d 78.585 kg 130/73 absent unknown 31 143 active Denies URRUTIA, VC, and epigastric pain. - Loly Solomon is a pa tient at 30 weeks and 6 days gestation with gestational diabetes mellitus (GDM) on metformin. - Patient reports: - Good adherence to metformin regimen - movement present - Occasional uterine tightening with a ssociated pain - Occurs every 5 minutes - Patient educated on differentiatin g between normal Wanette Hu contractions and concerning symptoms - Blood sugar levels: - Generally well-controlled - One instance of elevated blood sugar noted - No reported concerns or complications since last visit - Labs ordered: CBC, A1C - Follow up appointment in 2 weeks - Continue metformin for gestational rivera betes management - Fax non-stress test (NST) order to beg in at 32 weeks - Patient instructed to continue monitor ing blood glucose levels - Tentative delivery date discussed (reji boothjayden 38-39 weeks) 03/12/25 -?-?-?-?-?-?-?-?-?-?-?-?- 35w 4d 77.224 kg 114/74 absent unknown 35 155 active No contractions, LOF, VB and reports good FM. Denies URRUTIA, VC, and epigastric pain. - Loly Zavala is a p atient at 35 weeks and 2 days gestation with a history of previous section presenting for scheduling of repeat delivery. - She has a due date of April 12, wh ich would make her 39 weeks on April 05. - This will be her second secti on with one previous delivery. - GBS status is pending. - S chedule repeat section for April 05 at 12:30 PM - Patient is at 39 weeks gestation with due date of April 12 - Second section (one previous ) - GBS status pending 04/02/25 -?-?-?-?-?-?-?-?-?-?-?-?- 38w 4d 78.245 kg 109/73 absent unknown 38 145 active - She reports back pain that radiates to the front. - Pain stops intermittently, which she finds reassuring. - She denies cramping or contractions. - She reports the baby remains active. - She denies leaking of fluid or blood. - Patient has a scheduled section planned for at 12:30 PM. Plan - Scheduled section at 12:30 PM - Check-in at hospital at 10:00 AM on of surgery - NPO (nothing by mouth) after midnight before surgery - Pre-operative blood tests and 2-hour p reparation period required - Follow-up appointment scheduled to [facility] cervical dilation - If back pain persists more than 2-3 ho urs, present to hospital - Go [facility], not emergency bob m for any concerns KENIA Calculator Estimated Delivery Date Method Current WG Current Estimate 04/12/25 LMP (Certain) 39w 0d Other Estimates 04/11/25 Ultrasound #1 39w 1d 04/12/25 Ultrasound #2 39w 0d Office Procedures OBC Clinic LOC & Office Proc's Nursing/Assessment Patient Status: Established Patient OB Clinic Nursing Assessment: Medication Reconciliation, Update PMH in EMR and Vital Signs OB Clinic Coordination of Care: Complex Care and Chronic Disease 1-5, Education Complex Pt/Fam, Consent,records obtained, informed consent and Staff clarify orders Special Needs: Heart tones Established Patient Charge Established Patient Point Assignment: 120 Established Patient Point Charge: EP Level 4 (120-155) Assessment & Plan Diagnosis / Problem List (1) Gestational diabetes: Status: Acute (2) Supervision of high risk , unspecified, third trimester: Status: Acute (3) Maternal care for low transverse scar from previous delivery: Status: Acute Plan Problem List - at 35 weeks and 2 days gestation - Previous section - Repeat section scheduled Plan - Schedule repeat section for April 05 at 12:30 PM - Patient is at 39 weeks gestation with due date of April 12 - Second section (one previous ) - GBS status pending 1. Progress Reviewed gestational age, growth, and heart rate. Planned frequent visits (every 2 weeks until 36 weeks, then weekly). 2. Instructed patient to monitor movements and report decreases immediately. 3. Testing Counseled on routine third-trimester labs per guidelines. Discussed potential need for ultrasound or monitoring based on risk factors. 4. Preeclampsia Precaution Educated on preeclampsia signs: severe headache, vision changes, right upper quadrant pain, sudden swelling. Advised urgent reporting of symptoms and discussed blood pressure monitoring if high risk. 5. Labor Precautions Reviewed labor signs: regular contractions, pelvic pressure, back pain, bleeding, or fluid leakage. Instructed to seek immediate care for these symptoms. 6. Lifestyle and Delivery Preparation Reinforced vitamins, nutrition, and safe activity. Discussed plan, pain management, and . Advised on labor preparation (e.g., hospital bag) and expectations. 7. Psychosocial Support Assessed emotional well-being and offered resources for mental health or parenting support.
== END 2025-03-12 09:55 | disposition home or self-care (01) ==
LOC: HODSOBC 09:15
PROVIDERS: Supervising Provider Obstetrics & Gynecology; Visit Provider Obstetrics & Gynecology
DX: O09.293 Supervision of pregnancy with other poor reproductive or obstetric history, third trimester (principal); O34.211 Maternal care for low transverse scar from previous cesarean delivery; O09.893 Supervision of other high risk pregnancies, third trimester; O24.415 Gestational diabetes mellitus in pregnancy, controlled by oral hypoglycemic drugs; Z3A.35 35 weeks gestation of pregnancy
CPT/HCPCS: 99214; G0463

== ENCOUNTER 2025-03-22 12:53 | Outpatient (AMB) | payer MEDICAID, SELFPAY ==
[2025-03-22 13:03] VITALS: BP 106/73; PULSE 101; RESP 18; TEMP 36.6; O2SAT 98; BMI 32.5
--- NOTE | 2025-03-22 13:03 | OBCLNT_ITS ---
Vital Signs 03/22/25 13:03 Height 1.55 m Height Method Stated Weight 78.131 kg Weight Measurement Method Standing Scale BMI 32.5 BP 106/73 Blood Pressure Source Automatic Cuff Blood Pressure Location Left Upper Arm Position Sitting Respiration 18 Pulse 101 H Pulse Source Monitor Temp 97.9 F Temp Source Oral Pulse Oximetry (%) 98 Oxygen Delivery Method Room Air Allergies/Home Meds Allergies & Medications Allergies No Known Allergies Allergy (Verified 04/02/25 13:32) Medication Reconciliation metformin 500 mg tablet 1 tab PO QDAY 05/19/18 [History Confirmed 04/02/25] vit 122-ferrous fumarate 27 mg iron-folic acid 800 mcg tablet ( Multi) 1 tab PO QDAY 05/19/18 [History Confirmed 04/02/25] Intake Visit Data Collection New Patient or Established: Established Patient (seen at [facility] within 3 years) Reason for Visit:: CARE Seen by Clinical Staff ONLY (RN/MA): No Hogshead Head Matcher Required: No Do You Feel Safe at Home: Yes Authorities Contacted: N/A PCP or OBGYN visit in last 3 months: Yes Hx Now: Yes Are you currently on any form of Control: No Pain Present Currently: No Pain Scale Used: Orr-Oconnor/Numerical Pain scale:: 0 Smoking Status Smoking Status: Never smoker Questionnaires Covid-19 Vaccine Questionnaire Has patient been vacinated for Covid-19 Have you been vacinated for Covid-19: Yes PHQ-9 PHQ-2 Over the last 2 weeks, how often have you been bothered by any of the following problems? 1. Little interest or pleasure in doing things: not at all 2. Feeling down, depressed, or hopeless: not at all Total score: 0 PHQ-9 3. Trouble falling or staying asleep, or sleeping too much: Not at all 4. Feeling tired or having little energy: Not at all 5. Poor appetite or overeating: Not at all 6. Feeling bad about yourself - or that you are a failure or have let yourself or your family down: Not at all 7. Trouble concentrating on things, such as reading the newspaper or watching television: Not at all 8. Moving or speaking so slowly that other people could have noticed? - Or the opposite - being so fidgety or restless that you have been moving around a lot more than usual: not at all 9. Thoughts that you would be better off or of hurting yourself in some way: Not at all Total score: 0 Source: Developed by Drs. Bashir Cantrell, Yelena Quintero, Blaze Belle and colleagues, with an educational perla from [employer]. 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 Feel Safe at Home: Yes [employer]: Past Medical History Past Medical History: No Hx Neurological Disorders, No Hx Breast Cancer, No Hx Cardiac Disorders, No Hx Blood Disorders, No Hx Gastrointestinal Disorders, No Hx Renal Disease, No Hx Diabetes Mellitus Type 1 and Yes Hx Diabetes Mellitus Type 2 (PARENTS TYPE UNKNOWN TAKE ORAL ANTIDIABETIC MEDS) Care OB Visit Log OB Flowsheet Initial Weight: Not Recorded Date -?-?-?-?-?-?-?-?-?-?-?-?- EGA Weight BP Alb Glu CTX Pres Fundal ht FHR Mov Dilation Station Effacement Hx Notes Visit Note 01/24/25 -?-?-?-?-?-?-?-?-?-?-?-?- 28w 6d 76.771 kg 111/69 absent unknown 27 145 active 26w w/ hx of prior CS, GDM, and single IUFD (initial twin gestation); recent admission for kidney stones. FHR nl Plan: FU 2 w, refer ZULY Pratt, monitor at hospital, plan CS ~38?39w, continue amoxicillin, metformin, Fe, fluconazole, metronidazole; review glucose logs; extend disability with letter. 02/09/25 -?-?-?-?-?-?-?-?-?-?-?-?- 31w 1d 77.281 kg 113/70 absent unknown 29 149 active Patient has a history of prior delivery. - initially started as twin ge station, with demise of one fetus. - Recent medical history: - Hospitalization for kidney stones - Current GDM management: - Patient is on metformin - Blood glucose readings are reported as very good numbers - All fasting glucose levels are below 100 mg/dL - Patient is adherent to glucose monit oring No contractions, LOF, VB and reports goo d FM. Denies URRUTIA, VC, and epigastric pain. Plan - Continue monitoring blood glucose ramila ls - Await MFM ultrasound results from [facility] - Follow up in 2 weeks for laboratory te sts - Continue metformin as prescribed 02/26/25 -?-?-?-?-?-?-?-?-?-?-?-?- 33w 4d 78.585 kg 130/73 absent unknown 31 143 active Denies URRUTIA, VC, and epigastric pain. - Loly Solomon is a pa tient at 30 weeks and 6 days gestation with gestational diabetes mellitus (GDM) on metformin. - Patient reports: - Good adherence to metformin regimen - movement present - Occasional uterine tightening with a ssociated pain - Occurs every 5 minutes - Patient educated on differentiatin g between normal Luther Hu contractions and concerning symptoms - Blood sugar levels: - Generally well-controlled - One instance of elevated blood sugar noted - No reported concerns or complications since last visit - Labs ordered: CBC, A1C - Follow up appointment in 2 weeks - Continue metformin for gestational rivera betes management - Fax non-stress test (NST) order to beg in at 32 weeks - Patient instructed to continue monitor ing blood glucose levels - Tentative delivery date discussed (reji boothen 38-39 weeks) 03/12/25 -?-?-?-?-?-?-?-?-?-?-?-?- 35w 4d 77.224 kg 114/74 absent unknown 35 155 active No contractions, LOF, VB and reports good FM. Denies URRUTIA, VC, and epigastric pain. - Loly Zavala is a p atient at 35 weeks and 2 days gestation with a history of previous section presenting for scheduling of repeat delivery. - She has a due date of April 12, wh ich would make her 39 weeks on April 05. - This will be her second secti on with one previous delivery. - GBS status is pending. - Jennifer mauricioyancy repeat section for April 05 at 12:30 PM - Patient is at 39 weeks gestation with due date of April 12 - Second section (one previous ) - GBS status pending 03/22/25 -?-?-?-?-?-?-?-?-?-?-?-?- 37w 0d 78.131 kg 106/73 - [place] after twin demise - GDM management: - Patient reports good blood sugar num bers - Continuing current dose of metformin - Not very compliant with logging bloo d sugars - monitoring: - Patient receives monitoring at the h ospital on Mondays and - Reports normal heart rate of 1 65 bpm - Patient reports experiencing sciatica pain - Pain improves with lying down and taking Tylenol 35-week upton with gestational diabetes mellitus (GDM-A2) showing good glucose control on current metformin regimen with excellent blood sugar readings. History of previous section with repeat delivery scheduled. growth assessment reveals estimated weight of 2627 grams at 88th percentile with abdominal circumference greater than 99th percentile, consistent with diabetic macrosomia. Biophysical profile score of 8/8 indicates reassuring well-be ing. Patient experiencing sciatica pain related to uterine weight and spinal pressure. monitoring twice weekly shows normal results at 165 bpm. Previous twin with demise, now upton gestation with cephalic presentation and normal amniotic fluid index. Plan - Repeat scheduled for 5 at 12:30 p.m. - Continue same dose of metformin for ge stational diabetes management - Ongoing monitoring at hospital o n Mondays and - Will call patient today to confirm marc johnson scheduling details - For sciatica pain: lie down and take T ylenol as needed 04/02/25 -?-?-?-?-?-?-?-?-?-?-?-?- 38w 4d 78.245 kg 109/73 absent unknown 38 145 active - She reports back pain that radiates to the front. - Pain stops intermittently, which she finds reassuring. - She denies cramping or contractions. - She reports the baby remains active. - She denies leaking of fluid or blood. - Patient has a scheduled section planned for at 12:30 PM. Plan - Scheduled section at 12:30 PM - Check-in at hospital at 10:00 AM on y of surgery - NPO (nothing by mouth) after midnight before surgery - Pre-operative blood tests and 2-hour p reparation period required - Follow-up appointment scheduled to [facility] cervical dilation - If back pain persists more than 2-3 ho urs, present to hospital - Go to [facility], not emergency bob m for any concerns KENIA Calculator Estimated Delivery Date Method Current WG Current Estimate 04/12/25 LMP (Certain) 39w 0d Other Estimates 04/11/25 Ultrasound #1 39w 1d 04/12/25 Ultrasound #2 39w 0d Notes Visit Date: 03/22/25 Last Updated by: Rafael Quiroz MD - [facility] ultrasound (02/27/2025): - Single live fetus - Clinical gestational age: 33 weeks and 4 days - Estimated weight: 2627 grams (88th percentile) - Abdominal circumference: >99th percentile - Amniotic fluid index: Within normal limits - Placenta: Away from lower uterine segment, no evidence of placenta accreta spectrum - presentation: Cephalic - BPP score: 8/8 Problem List - Gestational diabetes mellitus - Twin demise - Previous section - Large for gestational age fetus - Sciatica Office Procedures [facility] Clinic LOC & Office Proc's Nursing/Assessment Patient Status: Established Patient OB Clinic Nursing Assessment: Medication Reconciliation, Update PMH in EMR and Vital Signs OB Clinic Coordination of Care: Complex Care and Chronic Disease 1-5, Consent,records obtained, informed consent, Education Simp Pt/Fam, 1 Ins Authorization, Lab and Imaging orders, Results/Orders obtained and Staff clarify orders Special Needs: Heart tones Miscellaneous Interventions: Culture Specimen Collection Established Patient Charge Established Patient Point Assignment: 165 Established Patient Point Charge: EP Level 5 (160-above) Assessment & Plan Diagnosis / Problem List (1) Maternal care for low transverse scar from previous delivery: Status: Acute (2) Gestational diabetes: Status: Acute (3) Supervision of high risk , unspecified, third trimester: Status: Acute Plan Problem List - Gestational diabetes mellitus - Twin demise - Previous section - Large for gestational age fetus - Sciatica Assessment 35-week upton with gestational diabetes mellitus (GDM-A2) showing good glucose control on current metformin regimen with excellent blood sugar readings. History of previous section with repeat delivery scheduled. growth assessment reveals estimated weight of 2627 grams at 88th percentile with abdominal circumference greater than 99th percentile, consistent with diabetic macrosomia. Biophysical profile score of 8/8 indicates reassuring well-being. Patient experiencing sciatica pain related to uterine weight and spinal pressure. monitoring twice weekly shows normal results at 165 bpm. Previous twin with demise, now upton gestation with cephalic presentation and normal amniotic fluid index. Plan - Repeat scheduled for 04/05/25 at 12:30 p.m. - Continue same dose of metformin for gestational diabetes management - Ongoing monitoring at hospital on Mondays and - Will call patient today to confirm delivery scheduling details - For sciatica pain: lie down and take Tylenol as needed 1. Progress Reviewed gestational age, growth, and heart rate. Planned frequent visits (every 2 weeks until 36 weeks, then weekly). 2. Instructed patient to monitor movements and report decreases immediately. 3. Testing Counseled on routine third-trimester labs per guidelines. Discussed potential need for ultrasound or monitoring based on risk factors. 4. Preeclampsia Precaution Educated on preeclampsia signs: severe headache, vision changes, right upper quadrant pain, sudden swelling. Advised urgent reporting of symptoms and discussed blood pressure monitoring if high risk. 5. Labor Precautions Reviewed labor signs: regular contractions, pelvic pressure, back pain, bleeding, or fluid leakage. Instructed to seek immediate care for these symptoms. 6. Lifestyle and Delivery Preparation Reinforced vitamins, nutrition, and safe activity. Discussed plan, pain management, and . Advised on labor preparation (e.g., hospital bag) and expectations. 7. Psychosocial Support Assessed emotional well-being and offered resources for mental health or parenting support.
== END 2025-03-22 13:53 | disposition home or self-care (01) ==
LOC: HODSOBC 12:53
PROVIDERS: Supervising Provider Obstetrics & Gynecology; Visit Provider Obstetrics & Gynecology
DX: O09.293 Supervision of pregnancy with other poor reproductive or obstetric history, third trimester (principal); O34.211 Maternal care for low transverse scar from previous cesarean delivery; O09.893 Supervision of other high risk pregnancies, third trimester; O24.415 Gestational diabetes mellitus in pregnancy, controlled by oral hypoglycemic drugs; O36.63X0 Maternal care for excessive fetal growth, third trimester, not applicable or unspecified; M54.30 Sciatica, unspecified side; O99.891 Other specified diseases and conditions complicating pregnancy; Z3A.37 37 weeks gestation of pregnancy
CPT/HCPCS: 99215; G0463

== ENCOUNTER 2025-04-02 14:26 | Outpatient (RCR) | payer MEDICAID, SELFPAY ==
--- NOTE | 2025-03-08 15:23 | XR_ITS ---
Examination: Biophysical profile, ultrasound Date and time of exam: March 08, 2025, 1342 hours INDICATIONS: History vaginal bleeding Technique: Multiple transabdominal sonographic images of the pelvis abdomen obtained. Attention is directed to the breathing movement, gross body movement, amniotic fluid volume and tone. Findings: Amniotic fluid index 12.6 cm Total biophysical profile is 8 of 8. breathing movement is 2. Gross body movement is 2. tone is 2. Qualitative amniotic fluid volume is 2 Impression: Biophysical profile is 8 of 8.
[2025-03-08 16:44] VITALS: BP 102/60; PULSE 100; RESP 16; TEMP 36.8
--- NOTE | 2025-03-12 15:27 | XR_ITS ---
Examination: Biophysical profile, ultrasound Date and time of exam: March 12, 2025, 1529 hours INDICATIONS: Diagnosis high risk , diagnosis gestational diabetes Technique: Multiple transabdominal sonographic images of the pelvis abdomen obtained. Attention is directed to the breathing movement, gross body movement, amniotic fluid volume and tone. Findings: Amniotic fluid index 17.7 cm Total biophysical profile is 8 of 8. breathing movement is 2. Gross body movement is 2. tone is 2. Qualitative amniotic fluid volume is 2 Impression: Biophysical profile is 8 of 8.
[2025-03-12 16:30] VITALS: BP 99/56; PULSE 99; RESP 16; TEMP 36.9
--- NOTE | 2025-03-15 15:09 | XR_ITS ---
Examination: Biophysical profile, ultrasound Date and time of exam: March 15, 2027, 1527 hours INDICATIONS: Gestational diabetes, diagnosis high risk Technique: Multiple transabdominal sonographic images of the pelvis abdomen obtained. Attention is directed to the breathing movement, gross body movement, amniotic fluid volume and tone. Findings: Amniotic fluid index 16 cm Total biophysical profile is 8 of 8. breathing movement is 2. Gross body movement is 2. tone is 2. Qualitative amniotic fluid volume is 2 Impression: Biophysical profile is 8 of 8.
[2025-03-15 16:45] VITALS: BP 112/55; PULSE 93; RESP 18
--- NOTE | 2025-03-19 14:36 | XR_ITS ---
Examination: Biophysical profile, ultrasound Date and time of exam: March 19, 2025, 1458 hours INDICATIONS: Diagnosis high risk , diagnosis gestational diabetes, diagnosis pelvic pain 10 days Technique: Multiple transabdominal sonographic images of the pelvis abdomen obtained. Attention is directed to the breathing movement, gross body movement, amniotic fluid volume and tone. Findings: Amniotic fluid index 11.3 cm Total biophysical profile is 8 of 8. breathing movement is 2. Gross body movement is 2. tone is 2. Qualitative amniotic fluid volume is 2 Impression: Biophysical profile is 8 of 8.
[2025-03-19 16:38] VITALS: BP 109/58; PULSE 83; RESP 18
--- NOTE | 2025-03-22 14:26 | XR_ITS ---
Examination: Biophysical profile, ultrasound Date and time of exam: March 22, 2025, 1426 hours INDICATIONS: Diagnosis high risk , gestational diabetes Technique: Multiple transabdominal sonographic images of the pelvis abdomen obtained. Attention is directed to the breathing movement, gross body movement, amniotic fluid volume and tone. Findings: Amniotic fluid index 10.7 cm Total biophysical profile is 8 of 8. breathing movement is 2. Gross body movement is 2. tone is 2. Qualitative amniotic fluid volume is 2 Impression: Biophysical profile is 8 of 8.
[2025-03-22 15:46] VITALS: BP 98/59; PULSE 91; RESP 16; TEMP 36.4
--- NOTE | 2025-03-26 15:09 | XR_ITS ---
Examination: Biophysical profile, ultrasound Date and time of exam: March 26, 2025, 1508 hours INDICATIONS: Supervision of high risk , gestational diabetes Technique: Multiple transabdominal sonographic images of the pelvis abdomen obtained. Attention is directed to the breathing movement, gross body movement, amniotic fluid volume and tone. Findings: Amniotic fluid index 14.5 cm Total biophysical profile is 8 of 8. breathing movement is 2. Gross body movement is 2. tone is 2. Qualitative amniotic fluid volume is 2 Impression: Biophysical profile is 8 of 8.
[2025-03-26 16:05] VITALS: BP 115/70; PULSE 88; RESP 17
--- NOTE | 2025-03-29 15:11 | XR_ITS ---
Examination: Biophysical profile, ultrasound Date and time of exam: March 29, 2025, 1519 hours INDICATIONS: Diagnosis supervision of high risk , diagnosis gestational diabetes, pelvic pain 2 weeks Technique: Multiple transabdominal sonographic images of the pelvis abdomen obtained. Attention is directed to the breathing movement, gross body movement, amniotic fluid volume and tone. Findings: Amniotic fluid index 13.0 cm Total biophysical profile is 8 of 8. breathing movement is 2. Gross body movement is 2. tone is 2. Qualitative amniotic fluid volume is 2 Impression: Biophysical profile is 8 of 8.
[2025-03-29 16:03] VITALS: BP 105/58; PULSE 85; RESP 16
--- NOTE | 2025-04-02 14:43 | XR_ITS ---
Examination: Biophysical profile, ultrasound Date and time of exam: April 02, 2025, 1450 hours INDICATIONS: Supervision of high risk , diagnosis gestational diabetes Technique: Multiple transabdominal sonographic images of the pelvis abdomen obtained. Attention is directed to the breathing movement, gross body movement, amniotic fluid volume and tone. Findings: Amniotic fluid index 14.2 cm Total biophysical profile is 8 of 8. breathing movement is 2. Gross body movement is 2. tone is 2. Qualitative amniotic fluid volume is 2 Impression: Biophysical profile is 8 of 8.
[2025-04-02 15:20] VITALS: BP 95/55; PULSE 94; RESP 16; TEMP 36.8
== END 2025-04-02 23:59 | disposition home or self-care (01) ==
LOC: S4S1 14:26
PROVIDERS: PCP Physician Assistant; Referring Provider Obstetrics & Gynecology; Visit Provider Obstetrics & Gynecology
DX: O24.415 Gestational diabetes mellitus in pregnancy, controlled by oral hypoglycemic drugs (principal); O09.93 Supervision of high risk pregnancy, unspecified, third trimester; Z3A.38 38 weeks gestation of pregnancy
CPT/HCPCS: 59025; 76819

== ENCOUNTER 2025-04-05 09:46 | Inpatient (IN) | payer MEDICAID, SELFPAY ==
[2025-04-05] VITALS (14 sets, daily range): BP systolic 103–119; BP diastolic 58–100; PULSE 67–95; RESP 14–21; TEMP 36.5–37.2; O2SAT 97–100; BMI 32.5
[2025-04-05 11:58] LABS: Basophils # (Auto) 0.0 Thou/mm3 (0.0-0.2); Basophils % (Auto) 0 % (0-2.5); Eosinophils # (Auto) 0.0 Thou/mm3 (0.0-0.5); Eosinophils % (Auto) 0 % (0-10); Hematocrit 32.1 % (36.0-46.0); Hemoglobin 10.6 g/dL (12.0-16.0); Immature Granulocytes Auto 0.03 Thou/mm3 (0.00-0.00); Lymphocytes # (Auto) 1.2 Thou/mm3 (1.0-4.8); Lymphocytes % (Auto) 22 % (10-50); Mean Corpuscular HGB Conc 33.0 g/dl (31.0-37.0); Mean Corpuscular Hemoglobin 28.0 pg (25.0-35.0); Mean Corpuscular Volume 85 fL (80-100); Monocytes # (Auto) 0.4 Thou/mm3 (0.0-0.8); Monocytes % (Auto) 7 % (0-12); Neutrophils # (Auto) 3.8 Thou/mm3 (1.8-7.7); Neutrophils % (Auto) 70 % (37-80); Nucleated Red Blood Cell # 0.00 Thou/mm3 (0.00-0.00); Nucleated Red Blood Cell % 0 /100 WBC (0); Platelet Count 210 Thou/mm3 (140-440); RDW Standard Deviation 45.8 fL (36.4-46.3); Red Blood Count 3.78 Miln/mm3 (4.00-5.20); White Blood Count 5.4 Thou/mm3 (3.6-11.0)
[2025-04-05] MEDS: RINGERS LACTATED 1000 ML 1,000 ML 100 ML IV (12:10)
[2025-04-05] MEDS: METOCLOPRAMIDE INJ 5 MG/ML VIAL 2 ML 10 MG IVP (12:17)
[2025-04-05] MEDS: FAMOTIDINE INJ 10 MG/ML VIAL 2 ML 20 MG IV (12:17)
[2025-04-05] MEDS: ceFAZolin/D5W 2 GM IV 2 GM/100 ML BAG IV (12:18)
--- NOTE | 2025-04-05 13:06 | PD.LDHP ---
Documentation for date of: 04/05/25 OB Labor/Induct. HPI History of Present Illness Chief complaint: Scheduled repeat : 2 Para: 1 Term pregnancies: 0 pregnancies: 0 Living children: 0 History of Abortions: Spontaneous and Elective: 0 History of sections: No History of : No Date of last menstrual period: 07/06/24 KENIA: 04/12/25 Gestational age based on last menstrual period: 39 History of present illness: 29-year-old 2 para 1 with a history of previous presenting for scheduled repeat low-transverse at 39 weeks. Patient transferred care to us from Dr. Ortega where she received her initial care. She is a IVF the started off as dichorionic diamniotic twins but there was demise of one of the twins in early . She currently has a upton at 39 weeks. Current is complicated by gestational diabetes on metformin. Patient had a 1 hour glucose of 165 followed by 3 out of 4 abnormals on her 3-hour glucose. Labs Labs: Positive: Rubella Titre, Negative: RPR, Hepatitis B, HIV, Chlamydia, Gonorrhea and Group Beta Strep and Unknown: Herpes Type 1, Herpes Type 2 and Covid-19 Review of Systems Review of Systems Systems Reviewed: All systems reviewed, normal except as documented Past Medical History Surgical History SURGICAL: Negative Section Meds Home Medications and Allergies Home Medications ?Medication ?Instructions ?Recorded ?Confirmed ?Type metformin 500 mg tablet 1 tab PO QDAY 05/19/18 04/02/25 History vit 122-ferrous fumarate 1 tab PO QDAY 05/19/18 04/02/25 History 27 mg iron-folic acid 800 mcg tablet ( Multi) Allergies Allergy/AdvReac Type Severity Reaction Status Date / Time No Known Allergies Allergy Verified 04/02/25 13:32 OB Exam Physical Exam Vital signs: Temp Pulse Resp BP O2 Del Method 99.0 F 95 17 116/73 Room Air 04/05/25 11:00 04/05/25 11:15 04/05/25 11:00 04/05/25 11:15 04/05/25 11:00 Constitutional Constitutional: no acute distress Routine HEENT Exam Head: Present normocephalic and atraumatic Eye: Present EOMI and PERRL ENT: Present mucous membranes moist Routine Neck Exam Neck: Present supple and trachea midline Routine Cardiovascular Exam Cardiovascular: Present RRR Routine Abdominal Exam Abdominal: Present soft and normoactive bowel sounds Detailed Labor and Delivery Exam Dilation (cm): 0 Effacement (%): 0 Cervix position: mid Presentation: Vertex Baseline heart rate: 145 monitor accelerations: 15x15 monitor decelerations: None correction variability: Average (6-10) Routine Extremities Exam Extremities: Present full ROM Routine Skin Exam Skin: Present intact, dry and warm Routine Neurological Exam Neurological: Present alert, oriented X3 and CN II-XII intact Routine Psychiatric Exam Psychiatric: Present normal affect and normal thought process OB Results Labs 04/05/25 11:10 Labs: Short CBC 04/05/25 Range/Units 11:10 WBC 5.4 (3.6-11.0) Thou/mm3 Hgb 10.6 L (12.0-16.0) g/dL Hct 32.1 L (36.0-46.0) % Plt Count 210 (140-440) Thou/mm3 OB Assessment & Plan Assessment and Plan (1) Maternal care for low transverse scar from previous delivery: Status: Acute Assessment and plan: Admit to inpatient status for repeat low transverse IV access, CBC, type and screen, LR at 125, RPR, COVID-19 test GBS negative Ancef 2 g prior to surgery start Landa catheter to drainage SCDs for DVT prophylaxis Anesthesia to preop for spinal anesthesia Scheduled for surgery. (2) Gestational diabetes: Status: Acute (3) Supervision of high risk , unspecified, third trimester: Status: Acute
--- NOTE | 2025-04-05 13:54 | ESOP_ITS ---
Operative Note - ART INSTRUCTOR Procedure Date of procedure: 04/05/25 Procedure Performed: Repeat low-transverse section Indication: 29-year-old 2 para 1 at 39 weeks and 0 days Gestational diabetes on metformin Previous IVF with twin gestation initially with demise of twin A and first trimester Anesthesia type: Spinal Procedure description: Informed consent was obtained and the patient was taken to the operating room. Identity was confirmed by double identifiers and she was placed on the operating table. Spinal anesthesia was administered and she was positioned in the supine position. The abdomen and perineum were prepped in the usual sterile fashion and a Landa catheter was placed to continuous drainage. Sterile drapes were ap plied. The incision site was tested for adequacy of anesthesia. A Pfannenstiel skin incision was made with a scalpel and carried to the subcutaneous fat up to the rectus fascia. The rectus fascia was incised on either side of the midline and the incisions were extended bilaterally. The fascia was gently dissected off the ventral surface of the rectus muscle both superiorly and inferiorly. The rectus bellies were gently in the midline and the peritoneum was identified and entered bluntly using the surgeon's finger. The peritoneal opening was now stretched to create an adequate opening for access to the uterus. Asif O-ring retractor was placed for adequate visualization. The anterior surface of the uterus was palpated. The bladder reflection was identified and a Savanna Hager low transverse uterine incision was made in the lower uterine segment taking care to avoid the bladder. Uterine entry was accomplished bluntly and the opening was stretched to create adequate room. The amniotic membranes were now ruptured and clear amniotic fluid was released. The fetus was noted to be in the vertex position. The head was gently elevated out of the maternal pelvis and the rest of the shoulders and body were delivered by gentle fundal pressure. Umbilical cord was doubly clamped, divided and the was handed over to the waiting team. Cord gas samples were obtained. The placenta was delivered by gentle traction on the umbilical cord. The interior of the uterus was now thoroughly cleaned of all blood and debris and membranes. The hysterotomy angles were grasped by a pair of Allis clamps and the hysterotomy was closed using 1 Monocryl suture in 2 layers. The first layer was used to approximate the muscle in a running locked fashion, the second layer was used to approximate the thickness of the myometrium and uterine serosa in an imbricated manner. Once the repair was completed the hysterotomy was inspected and noted to be adequately hemostatic. The hysterotomy was once again inspected and hemostasis was noted to be satisfactory. The Asif retractor was now removed. The peritoneal edges were re approximated. The rectus muscles were re approximated. The rectus fascia was now repaired using 0 Vicryl suture in a running fashion. The subcutaneous layer was now copiously irrigated using warm normal saline. All bleeding points were cauterized using the Bovie. The subcutaneous fat was closed using 3-0 Vicryl. The skin was closed using 4-0 Monocryl in a subcuticular fashion. The skin was cleaned and a sterile dressing was applied. The patient was now undraped, the abdomen and back were thoroughly cleaned and she was transferred to the recovery room in a stable and awake condition. The patient tolerated the entire procedure well. No complications were encountered. All instrument, sponge and lap counts were correct x2. Specimen: other (Placenta) Estimated blood loss (ml): 600 Complications: none Surgical staff Operation Date: 04/05/25 12:45 <No data on this case meets the specified criteria> Diagnosis Discharge Diagnosis (1) Maternal care for low transverse scar from previous delivery: Status: Acute (2) Gestational diabetes: Status: Acute (3) Supervision of high risk , unspecified, third trimester: Status: Acute Problem List Completed Was Problem List Reviewed/Reconciled?: Yes
--- NOTE | 2025-04-05 13:56 | PD.LDDELS ---
Data ([facility]) Data Hx Section: No : 2 Term: 0 : 0 Livin Abortions: Spontaneous & Theraputic: 0 Delivery Data ([facility]) Labor Data Induction/Augmentation Agent: None ROM date: 04/05/25 ROM time: Amniotic membrane rupture type: Artificial Amniotic fluid description: Clear Delivery Data [place] delivery date: 04/05/25 delivery time: Placenta delivery date: 04/05/25 Placenta delivery time: Delivered by: Rafael Quiroz Delivery nurse: CYNTHIA Orozco Neworn nurse: CYNTHIA Hawley Support person(s) at delivery: FOB Other staff at delivery: Jessa, OR RAIMUNDO Gonzales, FRANK Fermin Delivery Method Delivery method: Low Transverse Presentation: Vertex Anesthesia Type Anesthesia Type: Spinal Anesthesia type: Spinal Placenta Placenta delivery description: Manual Removal Cord blood sent to lab: Yes cord blood collection: Cord Blood Type [place] Data ([facility]) [place] Data order: 1 [place]'s gender: Male Identification band number: [id number] weight (gms): 3770 g Weight (pounds): 8 lbs and 5.0 ozs [place] length: 52 cm 1 minute: 8 5 minutes: 9
--- NOTE | 2025-04-05 16:16 | PC.NURSE ---
per Dr. scott, pt. is not late to care, just a late transfer to [facility]. OB drug screen cancelled
[2025-04-05] MEDS: KETOROLAC INJ 30 MG/ML VIAL IVP (17:55)
[2025-04-05] MEDS: OXYTOCIN in NS 20 units 20 UNIT/1,000 ML BAG 125 UNIT IV (22:06)
[2025-04-06 00:27] VITALS: BP 101/63; PULSE 97; RESP 20; TEMP 36.8; O2SAT 98
[2025-04-06 05:43] VITALS: BP 110/72; PULSE 100; TEMP 36.6; O2SAT 98
[2025-04-06] MEDS: IBUPROFEN TAB 400 MG TABLET 800 MG PO ×2 (05:52→15:23)
[2025-04-06 06:56] LABS: Basophils # (Auto) 0.0 Thou/mm3 (0.0-0.2); Basophils % (Auto) 0 % (0-2.5); Eosinophils # (Auto) 0.0 Thou/mm3 (0.0-0.5); Eosinophils % (Auto) 0 % (0-10); Hematocrit 27.6 % (36.0-46.0); Hemoglobin 9.2 g/dL (12.0-16.0); Immature Granulocytes Auto 0.04 Thou/mm3 (0.00-0.00); Lymphocytes # (Auto) 0.9 Thou/mm3 (1.0-4.8); Lymphocytes % (Auto) 14 % (10-50); Mean Corpuscular HGB Conc 33.3 g/dl (31.0-37.0); Mean Corpuscular Hemoglobin 29.0 pg (25.0-35.0); Mean Corpuscular Volume 87 fL (80-100); Monocytes # (Auto) 0.4 Thou/mm3 (0.0-0.8); Monocytes % (Auto) 7 % (0-12); Neutrophils # (Auto) 5.3 Thou/mm3 (1.8-7.7); Neutrophils % (Auto) 78 % (37-80); Nucleated Red Blood Cell # 0.00 Thou/mm3 (0.00-0.00); Nucleated Red Blood Cell % 0 /100 WBC (0); Platelet Count 181 Thou/mm3 (140-440); RDW Standard Deviation 48.2 fL (36.4-46.3); Red Blood Count 3.17 Miln/mm3 (4.00-5.20); White Blood Count 6.7 Thou/mm3 (3.6-11.0)
[2025-04-06 07:32] VITALS: BP 101/68; PULSE 96; RESP 18; TEMP 36.8; O2SAT 97
[2025-04-06] MEDS: DOCUSATE SOD 100 MG CAPSULE PO (09:27)
[2025-04-06 12:20] VITALS: BP 105/68; PULSE 98; RESP 17; TEMP 37.1; O2SAT 99
--- NOTE | 2025-04-06 12:21 | PD.LDPPPRG ---
Subjective Subjective Interval history: Delivery type: Patient doing well this morning. No acute complaints. Ambulating, tolerating p.o., and voiding without difficulty. HTN/Pre-E screen negative: No CP, SOB, URRUTIA, visual changes, RUQ pain. : Yes Lochia: diminishing Bowel: Flatus + / BM + UOP: Adequate Exam Vital Signs Temp Pulse Resp BP Pulse Ox O2 Del Method 98.3 F 96 18 101/68 97 Room Air 04/06/25 07:32 04/06/25 07:32 04/06/25 07:32 04/06/25 07:32 04/06/25 07:32 04/06/25 07:32 Constitutional Constitutional: no acute distress Routine HEENT Exam Head: Present normocephalic and atraumatic Eye: Present EOMI and PERRL ENT: Present mucous membranes moist Routine Neck Exam Neck: Present supple and trachea midline Routine Respiratory Exam Respiratory: Present chest non-tender, lungs clear, normal breath sounds and no resp distress Routine Cardiovascular Exam Cardiovascular: Present RRR Routine Abdominal Exam Abdominal: Present soft and normoactive bowel sounds Routine Extremities Exam Extremities: Present full ROM Routine Skin Exam Skin: Present intact, dry and warm Routine Neurological Exam Neurological: Present alert, oriented X3 and CN II-XII intact Routine Psychiatric Exam Psychiatric: Present normal affect and normal thought process Objective Labs 04/06/25 06:20 Labs: Laboratory Results - last 24 hr 04/05/25 04/06/25 11:10 06:20 WBC 6.7 RBC 3.17 L Hgb 9.2 L Hct 27.6 L MCV 87 MCH 29.0 MCHC 33.3 RDW Std Deviation 48.2 H Plt Count 181 Neut % (Auto) 78 Lymph % (Auto) 14 Harding % (Auto) 7 Eos % (Auto) 0 Baso % (Auto) 0 Neut # (Auto) 5.3 Lymph # (Auto) 0.9 L Harding # (Auto) 0.4 Eos # (Auto) 0.0 Baso # (Auto) 0.0 Immature Gran # (Auto) 0.04 H Absolute Nucleated RBC 0.00 Immature Gran % 1 H Nucleated RBC % 0 Blood Type O Positive Antibody Screen NEGATIVE Assessment & Plan Problem List (1) Maternal care for low transverse scar from previous delivery: Status: Acute Assessment and plan: 1. Continue routine /post-op care 2. Labs reviewed, cbc appropriate 3. Remove dressing/Landa 4. Encourage to ambulate, shower 5. Encourage PO intake, breast feeding (2) Gestational diabetes: Status: Acute (3) Supervision of high risk , unspecified, third trimester: Status: Acute Time Spent With Patient Time: Total time spent is greater than 50% in coordination of care (as documented) at patient's floor/unit and/or counseling patient:
[2025-04-06 15:30] VITALS: BP 107/73; PULSE 94; RESP 16; TEMP 36.9; O2SAT 100
[2025-04-06] MEDS: ACETAMINOPHEN 325 MG TABLET 650 MG PO (16:59)
[2025-04-07] MEDS: IBUPROFEN TAB 400 MG TABLET 800 MG PO ×2 (00:51→15:03)
[2025-04-07 08:15] VITALS: BP 101/69; PULSE 85; RESP 16; TEMP 36.9; O2SAT 100
[2025-04-07] MEDS: DOCUSATE SOD 100 MG CAPSULE PO (08:57)
--- NOTE | 2025-04-07 10:04 | PD.LDDS ---
DS: Providers Provider Date of admission: 04/05/25 09:46 Primary care physician: Layton Reddy Admitting Provider: Rafael Quiroz MD Attending Provider on Admission: Rafael Quiroz MD Consults: 04/05/25 13:47 Referral Routine Comment: Attending Provider on DC: Brandi Sahu MD Discharging Provider: Brandi Sahu MD DS: Diagnosis Discharge Diagnosis (1) Maternal care for low transverse scar from previous delivery: Status: Acute (2) Gestational diabetes: Status: Acute (3) Supervision of high risk , unspecified, third trimester: Status: Acute (4) delivery delivered: Status: Acute Problem List Completed Was Problem List Reviewed/Reconciled?: Yes Summary/Hosp Course Brief History: 29-year-old 2 para 1 with a history of previous presenting for scheduled repeat low-transverse at 39 weeks. Patient transferred care to us from Dr. Ortega where she received her initial care. She is a IVF the started off as dichorionic diamniotic twins but there was demise of one of the twins in early . She currently has a upton at 39 weeks. Current is complicated by gestational diabetes on metformin. Patient had a 1 hour glucose of 165 followed by 3 out of 4 abnormals on her 3-hour glucose.POD # 2 . patient has not had a bowel movement and passed small amount of flatus Peripartum Data Delivery Method: Low Transverse Procedures: Procedures Operation Date: 04/05/25 12:45 Actual Procedure Side Surgeon p in OB Not Applicable Rafael Quiroz MD Status at Discharge Functional status at discharge: independent ambulation Overall status at discharge: other (needs to have better bowel motility ) Time Spent with Patient Time attestation: Total time spent providing and/or coordinating discharge services: Time spent: Less than 30 minutes Exam Vital Signs Temp Pulse Resp BP Pulse Ox O2 Del Method 98.4 F 85 16 101/69 100 Room Air 04/07/25 08:15 04/07/25 08:15 04/07/25 08:15 04/07/25 08:15 04/07/25 08:15 04/07/25 08:15 Narrative Exam alert x3 chest clear CVS RRR NO thromegaly Uterus is nontender Uterus is firm Just below the umbilicus Bowel sounds present Abdomen soft distension no hernias noted/no CVAT Incision CDI No drainage Appropriately tender No calf tenderness Edema mild Discharge Plan Plan Patient Disposition: HOME (Self Care) Disposition Comment: after she passes adequate gas / or has a BM Patient condition on transfer: Stable Prescriptions/Referrals Prescriptions/Med Rec: New hydrocodone-acetaminophen 5-325 mg tablet 1 tab PO Q6H MDD 4 PRN (Reason: pain) 5 Days Qty: 20 0RF docusate sodium [Stool Softener] 100 mg capsule 100 mg PO QDAY 30 Days Qty: 30 0RF ibuprofen 600 mg tablet 600 mg PO Q6H MDD 4 PRN (Reason: fever or pain) 10 Days Qty: 40 0RF Continued Multi 27-800 mg-mcg Tablet 1 tab PO QDAY Discontinued metformin 500 mg Tablet 1 tab PO QDAY Referrals: Layton Boyd [Primary Care Provider] Rafael Quiroz MD [Physician, MECHANICAL EQUIPMENT TEST ENGINEER] Patient/Caregiver Discharge Instructions Discharge Activity: activity as tolerated Other Discharge Activity Instructions:: pelvic rest x 2 weeks GTT at 6 weeks follow up in clinic or ob provider in 2 weeks Education Materials: Breast Care After , C Section Dc Print Language: Monegasque Activity Restrictions/Additional Instructions: Seguimiento en 2 semanas Stand Alone Forms: Bren Award Info., Patient Portal Info Letter, DC from Surgery Discharge Order Discharge Orders: Discharge (Routine); Ordered 04/07/25 Ordered By: Brandi Sahu Planned Discharge Date 04/07/25
== END 2025-04-07 16:10 | disposition home or self-care (01) | DRG 540 ==
LOC: S4SX 11:34 → S4NX 13:20
PROVIDERS: Admitting Provider Obstetrics & Gynecology; PCP Physician Assistant; Visit Provider Obstetrics & Gynecology
PROC: 10D00Z1 Extraction of Products of Conception, Low, Open Approach (ICD-10-PCS; CPT 59514; principal; 2025-04-05 12:30)
DX: O34.211 Maternal care for low transverse scar from previous cesarean delivery (principal); Z3A.39 39 weeks gestation of pregnancy; O24.425 Gestational diabetes mellitus in childbirth, controlled by oral hypoglycemic drugs; Z37.0 Single live birth
CPT/HCPCS: 36415; 59409; 80307; 85025; 86850; 86900; 86901; 94762; A4217; A4314; A4649; J0689; J1885; J2210; J2274; J2371; J2590; J2765; J3010; J3490; J7120; A9270; J2270

== ENCOUNTER 2025-04-18 11:02 | Outpatient (AMB) | payer MEDICAID, SELFPAY ==
--- NOTE | 2025-04-18 11:05 | AMB.OBPP ---
Vital Signs 04/18/25 11:10 Height 1.55 m Height Method Stated Weight 70.987 kg Weight Measurement Method Standing Scale BMI 29.5 BP 119/75 Blood Pressure Source Automatic Cuff Blood Pressure Location Left Upper Arm Position Sitting Respiration 16 Pulse 87 Pulse Source Monitor Temp 97.8 F Temp Source Oral Pulse Oximetry (%) 97 Oxygen Delivery Method Room Air Allergies/Home Meds Allergies & Medications Allergies No Known Allergies Allergy (Verified 04/18/25 11:11) Medication Reconciliation vit 122-ferrous fumarate 27 mg iron-folic acid 800 mcg tablet ( Multi) 1 tab PO QDAY 05/19/18 [History Confirmed 04/18/25] docusate sodium 100 mg capsule (Stool Softener) 100 mg PO QDAY 30 days #30 caps 04/06/25 [Rx Confirmed 04/18/25] Intake Visit Data Collection New Patient or Established: Established Patient (seen at [facility] within 3 years) Reason for Visit:: Seen by Clinical Staff ONLY (RN/MA): No Rfid Systems Engineer Required: No Do You Feel Safe at Home: Yes Authorities Contacted: N/A PCP or OBGYN visit in last 3 months: Yes Hx Now: No Are you currently on any form of Control: No Pain Present Currently: No Pain Scale Used: Orr-[place]/Numerical Pain scale:: 0 Smoking Status Smoking Status: Never smoker Immunizations Flu Vaccine in the Last 12 Months: Yes Flu Vaccine Exclusion Criteria: Already Received INSEMINATOR: Past Medical History Past Medical History: No Hx Neurological Disorders, No Hx Breast Cancer, No Hx Cardiac Disorders, No Hx Cancer, No Hx Blood Disorders, No Hx Gastrointestinal Disorders, No Hx Renal Disease, No Hx Diabetes Mellitus Type 1 and No Hx Diabetes Mellitus Type 2 Questionnaires Covid-19 Vaccine Questionnaire Has patient been vacinated for Covid-19 Have you been vacinated for Covid-19: Yes Social History Living Situation History Lives With: Family Housing: House Tobacco History Smoking Status: Never smoker Second Hand Smoke Exposure: No Alcohol History Alcohol Intake: Never Domestic Abuse History Do You Feel Safe at Home: Yes EPDS - PP Depression Screening [place] Pospartum Depression Screen I have been able to laugh and see the funny side of things: (0) As much as I always could I have looked forward with enjoyment to things: (0) As much as I ever did I have blamed myself unnecessarily when things went wrong: (0) No, never I have been anxious or worried for no good reason: (0) No, not at all I have felt scared or panicky for no very good reason: (0) No, not at all Things have been getting on top of me: (0) No, I have been coping as well as ever I have been so unhappy that I have had difficulty sleeping: (0) No, not at all I have felt sad or miserable: (0) No, not at all I have been so unhappy that I have been crying: (0) No, never The thought of harming myself has occurred to me: (0) Never EPDS completed yes HPI Interval History: Loly Solomon presents for a postoperative visit following section performed on April 05, 2025. The patient is currently using an abdominal binder as recommended and reports ongoing pain, which she understands is expected to continue for up to 3 weeks post-operatively. She has been compliant with post-surgical care instructions and notes that her pain improves with increased activity and walking. The surgical dressing tape was removed during today's visit as the incision has healed appropriately with good skin approximation. She has a history of recent delivery via section on April 05, 2025. The patient is currently , approximately 10-11 days post-delivery. Exam Narrative Physical exam: - Abdominal: incision is healing well. Skin has joined up appropriately. Patient is using abdominal binder. Dressing tape was removed during examination. General General Appearance: alert, in no apparent distress and healthy appearing Head Head exam: atraumatic Neck Neck exam: Present normal inspection and trachea midline Chest Chest inspection: Present normal inspection and symmetric chest wall rise External exam: Present normal external exam; Absent tenderness Neuro Neurological exam: Present oriented X3 Psych Psychiatric exam: Present normal affect and normal mood Office Procedures OBC Clinic LOC & Office Proc's Nursing/Assessment Patient Status: Established Patient OB Clinic Nursing Assessment: Medication Reconciliation, Update PMH in EMR and Vital Signs OB Clinic Coordination of Care: Complex Care and Chronic Disease 1-5, Consent,records obtained, informed consent, Education Simp Pt/Fam, 1 Ins Authorization, Results/Orders obtained and Staff clarify orders Established Patient Charge Established Patient Point Assignment: 105 Established Patient Point Charge: EP Level 3 (80-115) Assessment & Plan Diagnosis / Problem List (1) Encounter for routine follow-up: Status: Acute Plan Status post section: - Patient is 11 days postoperative from section performed on April 05, 2025. - Incision is healing well with good skin approximation. - Expected postoperative pain is present and anticipated to continue for up to 3 weeks total. Plan: - Continue abdominal binder use for one month duration, wearing only when awake and removing during sleep. - No longer requires incision covering or dressing. - Pain expected to improve with increased activity and walking. - Return to Dr. Ortega (primary mobile marketing manager who referred patient) for remaining care. - Patient instructed to call Dr. Ortega' office to schedule follow-up appointment.
[2025-04-18 11:10] VITALS: BP 119/75; PULSE 87; RESP 16; TEMP 36.6; O2SAT 97; BMI 29.5
== END 2025-04-18 11:27 | disposition home or self-care (01) ==
LOC: HODSOBC 11:02
PROVIDERS: PCP Physician Assistant; Referring Provider Physician Assistant; Supervising Provider Obstetrics & Gynecology; Visit Provider Obstetrics & Gynecology
DX: Z39.2 Encounter for routine postpartum follow-up (principal)
CPT/HCPCS: 99213; G0463

== ENCOUNTER 2025-06-05 17:56 | Emergency (ER) | payer MEDICAID, SELFPAY ==
--- NOTE | 2025-06-05 18:14 | PC.NURSE ---
PT SAYS SHE CANNOT WAIT SO LONG; HER BABY IS AT HOME. ENCOURAGED PT TO RETURN IN THE MORNING WHEN IT'S NOT SO BUSY.
== END 2025-06-05 18:15 | disposition left against medical advice (07) ==
LOC: SERX 18:23
PROVIDERS: Emergency Provider Family Medicine
DX: Z53.21 Procedure and treatment not carried out due to patient leaving prior to being seen by health care provider (principal)
CPT/HCPCS: 99281

== ENCOUNTER 2025-06-06 07:04 | Day surgery (SDC) | payer MEDICAID, SELFPAY ==
[2025-06-06] VITALS (11 sets, daily range): BP systolic 104–124; BP diastolic 65–85; PULSE 64–90; RESP 14–20; TEMP 36.4–37.2; O2SAT 96–100; BMI 28.7; BMI 28.1
--- NOTE | 2025-06-06 07:18 | XR_ITS ---
Examination: Transvaginal ultrasound of the pelvis, complete Technique: Transvaginal sonographic images pelvis performed using reese scale imaging Exam date and time: June 06, 2025, 0801 hours INDICATION: Vaginal bleeding post April 05, 2025 FINDINGS: Uterus 10.7 cm Thickened heterogeneous endometrium measuring up to 4.0 cm in dimension Right ovary obscured by bowel gas Left ovary 2.7 cm arterial flow IMPRESSION: Positive for retained products of conception.
--- NOTE | 2025-06-06 07:19 | EDNOTE_ITS ---
ED OB Contraction Preg RMI/HPI General Chief complaint: Vaginal Bleeding Stated complaint: VAG BLEED SP C-SEC, POSS FB SENT BY [facility] Time Seen by Provider: 06/06/25 07:08 Arrival date/time: 06/06/25 07:04 RME / HPI RME / HPI Narrative: See MDM for Dr. Campbell's HPI documentation. Related Data Home Medications ?Medication ?Instructions ?Recorded ?Confirmed vit 122-ferrous fumarate 1 tab PO QDAY 04/18/25 27 mg iron-folic acid 800 mcg tablet ( Multi) Allergies Allergy/AdvReac Type Severity Reaction Status Date / Time No Known Allergies Allergy Verified 06/06/25 14:54 Review of Systems Review of Systems Systems Reviewed: All systems reviewed, normal except as documented Past Medical History Past Medical History REPRODUCTIVE: Positive Previous Pregnancies PSYCHO/SOCIAL: Positive Depression Surgical History SURGICAL: Positive Abdominal Surgery ED Exam Narrative Physical exam: See MDM for Dr. Campbell's physical exam documentation. Course Quality Measures none Orders Category Date Time Status Place in Surgical Day Care Routine Admission 06/06/25 12:28 Active Activity as Tolerated Routine Care 06/06/25 12:28 Ordered COVID-19 Screening Questionnaire NOW Care 06/06/25 12:21 Completed Decision to Admit X1 Care 06/06/25 12:21 Completed In and Out Catheter X1 Care 06/06/25 12:28 Active Initiate Warming Therapy .On arrival Care 06/06/25 12:29 Active NPO NOW Care 06/06/25 12:29 Active Obtain Written Consent For: NOW Care 06/06/25 12:28 Completed Sequential Compression Device NOW Care 06/06/25 12:29 Active Diet NPO (NOW) Diet 06/06/25 12:29 Active US transvaginal Stat Exams 06/06/25 07:18 Completed Beta HCG,Quantitative Stat Lab 06/06/25 07:24 Completed Bilirubin,Direct Stat Lab 06/06/25 07:24 Completed CBC Stat Lab 06/06/25 07:24 Completed CMP [Comprehensive Metabolic Panel] Stat Lab 06/06/25 07:24 Completed Magnesium Stat Lab 06/06/25 07:24 Completed PT [Prothrombin Time with INR] Stat Lab 06/06/25 07:24 Completed PTT [Partial Thromboplastin Time] Stat Lab 06/06/25 07:24 Completed TSH [Thyroid Stimulating Hormone] Stat Lab 06/06/25 07:24 Completed Type and Screen Stat Lab 06/06/25 09:43 Completed UA, C/S IF [Urinalysis, C/S if Indicated] Stat Lab 06/06/25 08:20 Completed Urine Culture Stat Lab 06/06/25 08:20 Received Doxycycline Inj [Vibramycin Inj] 100 mg Med 06/06/25 12:30 Discontinued Sodium Chloride 0.9% (Pop) [NS 0.9% mini bag] 100 ml IV X1 Ketorolac Inj [Toradol Inj] Med 06/06/25 14:37 Discontinued 30 mg .ROUTE .STK-MED ONE Lidocaine 1% Pf Vial 5ml [Xylocaine 1% Pf 5 ml] Med 06/06/25 14:31 Discontinued 5 ml .ROUTE .STK-MED ONE Methylergonovine Inj [Methergine Inj] Med 06/06/25 14:45 Discontinued 0.2 mg .ROUTE .STK-MED ONE Metoclopramide Inj [Reglan Inj] Med 06/06/25 14:37 Discontinued 10 mg .ROUTE .STK-MED ONE Ondansetron Inj [Zofran Inj] Med 06/06/25 14:37 Discontinued 4 mg .ROUTE .STK-MED ONE Propofol Inj [Diprivan Inj] Med 06/06/25 14:28 Discontinued 200 mg IV .STK-MED ONE Ringers Lactated 1000 ml [Lactated Ringers] 1,000 ml Med 06/06/25 12:18 Discontinued IV 999 mls/hr Sevoflurane [Ultane] Med 06/06/25 14:55 Discontinued 15 min INH .STK-MED ONE Silver Nitrate Applicators Med 06/06/25 15:03 Discontinued 2 appl TOP .STK-MED ONE dexAMETHasone INJ [Decadron Inj] Med 06/06/25 14:37 Discontinued 10 mg .ROUTE .STK-MED ONE fentaNYL INJ [Sublimaze Inj] Med 06/06/25 14:28 Discontinued 100 mcg .ROUTE .STK-MED ONE Code Status Routine Oth 06/06/25 12:28 Ordered Vital Signs Vital signs: Vital Signs Temperature 98.2 F 06/06/25 07:14 Pulse Rate 90 06/06/25 07:14 Respiratory Rate 19 06/06/25 07:14 Blood Pressure 122/77 06/06/25 07:14 Pulse Oximetry (%) 100 06/06/25 07:14 Oxygen Delivery Method Room Air 06/06/25 07:14 Pulse ox is 100% on room air which is adequate. Vaginal Bleeding MDM Narrative MDM Narrative: This section includes all my notes and documentations, including HPI, PE, and ED course. Donnell Campbell MD HPI: 29-year-old female here with vaginal bleeding since 2 months ago. No significant abdominal pain or flank pain. No fever. No nausea or vomiting. No other complaints. ROS: All negative except as documented in HPI. Physical Exam: General: Alert and oriented. No acute distress when remaining still. Eyes: Conjunctivae and lids clear. ENT: No nasal congestion. Neck: Supple. Heart: RRR. Lungs: No respiratory distress. Good air movement. No rhonchi, wheezing, rales. Abdomen: Soft and nontender. Normal bowel sounds. No distension. No rebound or guarding. Back: No CVA tenderness. Skin: Warm and dry. Neuro: Alert and oriented X 3. I reviewed all diagnostic test results: My review of the transvaginal US report is retained products of conception. Blood/urine tests unremarkable. At this point, diagnoses include: Retained products of conception Treatment here included: IVF Patient remained stable. 09:05 - I discussed the case with on-call EPIC APPLICATION COORDINATOR (Dr. Naylor). About the presentation and exam and diagnostics and treatments here. And need of further care in the hospital. Will admit the patient for further care, including D&C. Donnell Campbell MD Patient data External records reviewed:: [facility] previous records Clinical information provided by:: patient Social determinants that could affect healthcare access:: none Patient has the following chronic illnesses:: s/p 04/05/2025 No chronic medical hx reported How is presenting disease/condition affected by chronic disease/condition?: exacerbated by Evaluation data The following diagnostics were reviewed and interpreted by me:: lab results and radiology exam(s) Lab and/or radiology exams considered but not ordered:: None Interpretation Summary: I reviewed all diagnostic test results: My review of the transvaginal US report is retained products of conception. Blood/urine tests unremarkable. Medications / Prescriptions Medications or Prescriptions considered but not ordered:: None Medication administrations:: Medication Administration History Discontinued Medications Dexamethasone Sodium Phosphate (Dexamethasone Sod Phos Inj 10 Mg/Ml Vial) Confirm Administered Dose 10 mg .ROUTE .STK-MED ONE Stop: 06/06/25 14:38 Fentanyl Citrate (Fentanyl Cit Inj 50 Mcg/Ml Amp 2ml) Confirm Administered Dose 100 mcg .ROUTE .STK-MED ONE Stop: 06/06/25 14:29 Lactated Ringer's (Lactated Ringers) 1,000 mls @ 999 mls/hr IV .Q1H1M ONE Stop: 06/06/25 13:18 Last Infusion: 06/06/25 13:51 Dose: Infused Documented By: Admin: 06/06/25 12:24 Dose: 999 mls/hr Documented By: DO Doxycycline Hyclate 100 mg/ (Sodium Chloride) 100 mls @ 100 mls/hr IV X1 ONE Stop: 06/06/25 13:29 Last Infusion: 06/06/25 13:50 Dose: Infused Documented By: Admin: 06/06/25 12:40 Dose: 100 mls/hr Documented By: DO Ketorolac Tromethamine (Ketorolac Inj 30 Mg/Ml Vial) Confirm Administered Dose 30 mg .ROUTE .STK-MED ONE Stop: 06/06/25 14:38 Lidocaine HCl (Lidocaine Inj Pf 1% 5 Ml Vial) Confirm Administered Dose 5 ml .ROUTE .STK-MED ONE Stop: 06/06/25 14:32 Methylergonovine Maleate (Methylergonovine Inj 0.2 Mg/Ml Vial) Confirm Administered Dose 0.2 mg .ROUTE .STK-MED ONE Stop: 06/06/25 14:46 Metoclopramide HCl (Metoclopramide Inj 5 Mg/Ml Vial 2 Ml) Confirm Administered Dose 10 mg .ROUTE .STK-MED ONE Stop: 06/06/25 14:38 Ondansetron HCl (Ondansetron Inj 2 Mg/Ml Inj 2 Ml) Confirm Administered Dose 4 mg .ROUTE .STK-MED ONE Stop: 06/06/25 14:38 Propofol (Propofol Inj 10 Mg/Ml Vial 20 Ml) Confirm Administered Dose 200 mg IV .STK-MED ONE Stop: 06/06/25 14:29 Sevoflurane (Sevoflurane 15 Min/Unit Ea) Confirm Administered Dose 15 min INH .STK-MED ONE Stop: 06/06/25 14:56 Silver Nitrate (Silver Nitrate 1 Appl Ea) Confirm Administered Dose 2 appl TOP .STK-MED ONE Stop: 06/06/25 15:04 Treatment here included: IVF Consultations Consultation(s) initiated? (list below): Yes Consultation #1 (Physician, Specialty, Details): :05 - I discussed the case with on-call EPIC APPLICATION COORDINATOR (Dr. Naylor). About the presentation and exam and diagnostics and treatments here. And need of further care in the hospital. Will admit the patient for further care, including D&C. Diagnosis Vaginal Bleeding Differential Diagnosis: missed , threatened , dysfunctional uterine bleeding, menometrorrhagia, incomplete , ectopic without intrauterine , vaginal bleeding and other (retained products of conception) Most likely diagnosis given after review of the tests above:: Retained products of conception Admission Indicated Admission indicated?: indicated Explain why admission is indicated or not indicated:: 09:05 - I discussed the case with on-call EPIC APPLICATION COORDINATOR (Dr. Naylor). About the presentation and exam and diagnostics and treatments here. And need of further care in the hospital. Will admit the patient for further care, including D&C. Admission Request Was there a request for admission?: Yes Admission Attestation Admission request attestation: :05 - I discussed the case with on-call EPIC APPLICATION COORDINATOR (Dr. Naylor). About the presentation and exam and diagnostics and treatments here. And need of further care in the hospital. Will admit the patient for further care, including D&C. Disposition Plan Disposition Plan: Admit Discharge Plan Plan Patient Disposition: Admit Acute Care w/in Hospital Problem List Clinical Impression: Retained products of conception
[2025-06-06 07:49] LABS: Basophils # (Auto) 0.0 Thou/mm3 (0.0-0.2); Basophils % (Auto) 0 % (0-2.5); Eosinophils # (Auto) 0.0 Thou/mm3 (0.0-0.5); Eosinophils % (Auto) 1 % (0-10); Hematocrit 34.8 % (36.0-46.0); Hemoglobin 11.4 g/dL (12.0-16.0); Immature Granulocytes Auto 0.01 Thou/mm3 (0.00-0.00); Lymphocytes # (Auto) 1.5 Thou/mm3 (1.0-4.8); Lymphocytes % (Auto) 32 % (10-50); Mean Corpuscular HGB Conc 32.8 g/dl (31.0-37.0); Mean Corpuscular Hemoglobin 27.7 pg (25.0-35.0); Mean Corpuscular Volume 85 fL (80-100); Monocytes # (Auto) 0.2 Thou/mm3 (0.0-0.8); Monocytes % (Auto) 5 % (0-12); Neutrophils # (Auto) 2.8 Thou/mm3 (1.8-7.7); Neutrophils % (Auto) 61 % (37-80); Nucleated Red Blood Cell # 0.00 Thou/mm3 (0.00-0.00); Nucleated Red Blood Cell % 0 /100 WBC (0); Platelet Count 329 Thou/mm3 (140-440); RDW Standard Deviation 43.2 fL (36.4-46.3); Red Blood Count 4.12 Miln/mm3 (4.00-5.20); White Blood Count 4.6 Thou/mm3 (3.6-11.0)
[2025-06-06 08:07] LABS: INR 1.0 (0.9-1.3); Partial Thromboplastin Time 27.3 Seconds (22.0-36.0); Prothrombin Time 10.3 Seconds (9.0-12.2)
[2025-06-06 08:22] LABS: Alanine Aminotransferase 8 U/L (10-49); Albumin, Serum 4.7 gm/dL (3.5-5.0); Albumin/Globulin Ratio 1.6 (1.2-2.2); Alkaline Phosphatase 89 U/L (46-116); Anion Gap 8 (7-16); Aspartate Amino Transferase 15 U/L (0-34); BUN/Creatinine Ratio 13 Ratio (12-20); Beta HCG,Quantitative 1 mIU/mL (<5.0); Bilirubin,Direct 0.1 mg/dL (0.0-0.3); Bilirubin,Total 0.4 mg/dL (0.3-1.2); Blood Urea Nitrogen 9 mg/dL (9-23); Calcium 9.2 mg/dL (8.3-10.6); Calcium (Corrected) 9.2 mg/dL (8.5-10.1); Carbon Dioxide 26.3 mMol/L (20.0-31.0); Chloride 107 mMol/L (98-107); Creatinine (Component) 0.7 mg/dL (0.6-1.3); Estimated Creatinine Clearance 103.2 mL/min (>60); Globulin 3.0 gm/dL (2.3-3.5); Glucose 118 mg/dL (74-106); Magnesium 2.0 mg/dL (1.6-2.6); Osmolality,Calculated 280 (275-295); Potassium 3.4 mMol/L (3.4-5.1); Sodium 141 mMol/L (136-145); Thyroid Stimulating Hormone 1.58 uIU/mL (0.55-4.78); Total Protein 7.7 gm/dL (5.7-8.2); eGFR > 60 See Note
[2025-06-06 08:53] LABS: Collection Type, Urine Clean Catch; Squamous Epithelial Cell,Urine 0 /hpf (0-5); WBC,Urine 0 /hpf (0-5)
[2025-06-06 09:18] LABS: Bilirubin,Urine Negative (Negative); Blood,Urine 3+ (Negative); Clarity,Urine Clear (Clear/Hazy); Color,Urine Drk Red (Lt Yel-Yel); Glucose, Urine Trace (Negative); Ketones,Urine 1+ (Negative); Leukocyte Esterase,Urine 2+ (Negative); Nitrite,Urine Positive (Negative); PH,Urine 7.0 (5.0-7.0); Protein,Urine 3+ (Neg - Trace); Specific Gravity,Urine 1.015 (1.001-1.035); Urobilinogen,Urine 4.0 mg/dL (0.0-1.0)
[2025-06-06 09:22] LABS: Culture Indicated,Urine Yes
[2025-06-06 10:11] LABS: RBC,Urine 4000 /hpf (0-3)
--- NOTE | 2025-06-06 11:50 | PC.NURSE ---
OB Dr. Naylor at bedside
[2025-06-06] MEDS: RINGERS LACTATED 1000 ML 1,000 ML 999 ML IV (12:24)
--- NOTE | 2025-06-06 12:30 | PC.NURSE ---
Per pt, her last NPO status was on 06/05/25 at 1800
--- NOTE | 2025-06-06 12:32 | ESHP_ITS ---
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 She notes she has not had a single 24hr period of time without bleeding since delivery. Sometimes passes clots. Saturates a pad or two per day at this point. No fevers/chills. No foul odor. She was seen in the office with Dr. Ortega who noted tissue within the uterus on ultrasound (per patient) and sent her to ER for further evaluation after discussing with Dr. Quiroz. She is not breast feeding. Review of Systems Review of Systems Narrative Review of Systems: Review of Systems Systems Reviewed: All systems reviewed, normal except as documented Constitutional Constitutional: Denies body ache(s), Denies chills, Denies fever(s) and Denies headache(s) ENT Ears, Nose, Mouth, and Throat: Denies headache(s) and Denies vertigo Cardiovascular Cardiovascular: Denies chest pain, Denies palpitations, Denies dyspnea and Denies syncope Respiratory Respiratory: Denies cough, Denies dyspnea Gastrointestinal Gastrointestinal: Denies nausea and Denies vomiting Neurologic Neurologic: Denies convulsions, Denies headache(s), Denies other visual disturbances, Denies syncope and Denies vertigo Past Medical History Family History OTHER FAMILY HX: Denies hx of breast/ovarian/uterine/colon cancer Surgical History SURGICAL: Positive Section (x2) OTHER SURGICAL HX: appendectomy Social History SOCIAL: Denies tobacco/ETOH/illicit drug use. Good social support, with 2 kids Past Medical History Comments PMH COMMENT: Current BMI 28 Hx of A2GDM with recent Meds Home Medications and Allergies Home Medications ?Medication ?Instructions ?Recorded ?Confirmed ?Type vit 122-ferrous fumarate 1 tab PO QDAY 04/18/25 History 27 mg iron-folic acid 800 mcg tablet ( Multi) Allergies Allergy/AdvReac Type Severity Reaction Status Date / Time No Known Allergies Allergy Verified 06/06/25 07:08 Exam - SERVICE AND REPAIR SUPERVISOR Vital Signs Temp Pulse Resp BP Pulse Ox O2 Del Method 98.3 F 70 20 114/71 99 Room Air 06/06/25 12:25 06/06/25 12:25 06/06/25 12:25 06/06/25 12:25 06/06/25 12:25 06/06/25 12:25 Narrative Exam General: well developed, well nourished, no acute distress, conversant Cardiac: normal heart rate Lungs: breathing without distress Abdomen: soft, non-tender, no rebound or guarding Extremities: no pain with palpation of calves SERVICE AND REPAIR SUPERVISOR - Results Labs 06/06/25 07:24 06/06/25 07:24 Labs: Short CBC 06/06/25 Range/Units 07:24 WBC 4.6 (3.6-11.0) Thou/mm3 Hgb 11.4 L (12.0-16.0) g/dL Hct 34.8 L (36.0-46.0) % Plt Count 329 (140-440) Thou/mm3 BMP 06/06/25 07:24 Sodium 141 Potassium 3.4 Chloride 107 Carbon Dioxide 26.3 BUN 9 Creatinine 0.7 Glucose 118 H Calcium 9.2 Liver Function 06/06/25 Range/Units 07:24 Total Bilirubin 0.4 (0.3-1.2) mg/dL Direct Bilirubin 0.1 (0.0-0.3) mg/dL AST 15 (0-34) U/L ALT 8 L (10-49) U/L Alkaline Phosphatase 89 (46-116) U/L Albumin 4.7 (3.5-5.0) gm/dL Urine 06/06/25 Range/Units 08:20 Urine Color Drk Red A (Lt Yel-Yel) Urine Clarity Clear (Clear/Hazy) Urine pH 7.0 (5.0-7.0) Ur Specific Bryant 1.015 (1.001-1.035) Urine Protein 3+ A (Neg - Trace) Urine Glucose (UA) Trace (Negative) Impressions Impression: Ordering Physician: Donnell Campbell MD Date of Service: 06/06/25 Procedure(s): US transvaginal Accession Number(s): [id number] cc: Donnell Campbell MD; Sharan Ruiz MD; Riley Sharma MD~ Examination: Transvaginal ultrasound of the pelvis, complete Technique: Transvaginal sonographic images pelvis performed using reese scale imaging Exam date and time: June 06, 2025, 0801 hours INDICATION: Vaginal bleeding post April 05, 2025 FINDINGS: Uterus 10.7 cm Thickened heterogeneous endometrium measuring up to 4.0 cm in dimension Right ovary obscured by bowel gas Left ovary 2.7 cm arterial flow IMPRESSION: Positive for retained products of conception. Assessment and Plan Assessment and plan (1) Retained products of conception: Status: Acute Assessment and plan: Loly is a 29yo with suspected retained products of conception after uncomplicated RLTCS done 04/05/25. Vitals wnl, benign exam. TVUS shows 4cm EMS. Hgb 11.4. No evidence of infection. was notable for IVF di-di twin gestation with twin A having demise in first trimester. It is possible that tissue related to twin A was retained at time of . Plan: -Discussed with patient diagnosis and indication for surgery: suction dilation and curettage -NPO -Counseled/consented via [place] phone theatre director re: suction dilation and curettage. Discussed all r/b/a to include: bleeding (possible need for blood transfusion), infection, injury to nearby structures such as bladder, bowel, ureters, blood vessels, nerves with possible need for laparotomy to address the injury. Answered all questions to patient and their support person's satisfaction. -IV abx ppx: doxycycline 100mg IV x1 -OR team aware of plan for surgery. Will proceed to OR when team is ready. (2) History of delivery: Status: Acute (3) BMI 28.0-28.9,adult: Status: Acute Quality Measures Quality Measures none
[2025-06-06] MEDS: DOXYCYCLINE INJ 100 MG in SODIUM CHLORIDE 0.9% (POP) 100 ML IV (12:40)
--- NOTE | 2025-06-06 12:44 | PC.CC ---
Patient is a 29 year-old female who presents to the hospital for vag bleeding, SP , Poss FIB. SEASONAL RECRUITERFany made [id number] contact with patient introduced self, role, and reason for visit. Patient appeared alert and oriented to self, location, and situation. SEASONAL RECRUITER, discussed limits of confidentiality. Patient made appropriate eye contact and engaged in initial assessment. ? Patient confirmed her address as [address] [place] [address] in [place], [place]. She reports she lives with her , Tay Ortega . Per patient, in the event she is unable to make her own medical decisions her medical decision maker is her . Patient is able to ambulate independent and complete all ADLs she does not require any DME. She is not a dialysis patient and does not require the use of oxygen. Her primary provider is Riley Sharma at [facility] in [place] and her pharmacy of choice is [facility]. Upon discharge patient plans to return. account services representative to follow up upon discharge.
--- NOTE | 2025-06-06 15:17 | SUR.PHASEI ---
1515 patient is sleepy and arousable, breathing unlabored, s/p suction D&C, peripad dry with no active vaginal bleeding, report received from Cooper Lopez Anesthesiologist and Azlu MARIE.
--- NOTE | 2025-06-06 15:41 | PD.GYNPROC ---
Operative Note - DELIVERY STOCK CLERK Procedure Date of procedure: 06/06/25 Procedure Performed: suction dilation and curettage Indication: Loly is a 29yo with suspected retained products of conception after uncomplicated RLTCS done 04/05/25 after presenting with continuous daily bleeding since her . TVUS shows 4cm EMS. Hgb 11.4. No evidence of infection. was notable for IVF di-di twin gestation with twin A having demise in first trimester. Hcg quant today is 1. Pre-Op diagnosis: Suspected retained products of conception s/p RLTCS on 04/05/25 with daily vaginal bleeding, EMS 4cm Post-Op diagnosis: Suspected retained products of conception s/p RLTCS on 04/05/25 with daily vaginal bleeding, EMS 4cm Anesthesia type: General Fluids: crystalloid Fluid amount (mL): 1,000 Specimen: other (intra-uterine contents) Estimated blood loss (ml): 15 Findings: Scant tissue within uterus, mostly blood/clot Complications: none Narrative: After obtaining informed consent, the patient was taken to the operating room where she underwent general anesthesia with LMA. She was placed in the low lithotomy position, and the perineum and vagina were prepped and draped in sterile fashion. She was given doxycycline 100mg IV x1 for surgical prophylaxis. The bivalved speculum was inserted into the vagina. The anterior segment of the cervix was grasped with a single-tooth tenaculum. The uterus sounded to 7cm. The cervix required no dilation since the os was gaping open. A 9-mm suction curette was introduced to the fundus of the uterus. Suction was activated at 60cm of water. 5 passes of suction curettage were used to remove the intrauterine contents. A sharp curette was used and good cry was noted in 360 degrees. 2 final passes with the suction curette insured removal of all intrauterine contents. Patient was given 0.2mg IM methergine and speculum was removed. Bimanual massage was performed until good uterine tone was noted both in the fundus and lower uterine segment. Speculum re-placed in the vagina and complete hemostasis was noted. The tenaculum was removed and tenaculum sites noted to be hemostatic after application of silver nitrate. The bivalved speculum was removed. The patient was transferred to the recovery room in good condition. Sponge, lap, needle, instrument counts correct x2. Surgical staff Operation Date: 06/06/25 15:15 Case Staff POLYGRAPH EXAMINER: Cooper Lopez Jr Diagnosis Discharge Diagnosis (1) Retained products of conception: Status: Acute (2) History of delivery: Status: Acute Problem List Completed Was Problem List Reviewed/Reconciled?: Yes
--- NOTE | 2025-06-06 16:29 | SUR.PHASEII ---
1626 patient is awake, alert, breathing unlabored, peripad with no active vaginal bleeding, patient able to tolerate water and jello with no nausea or vomiting, able to ambulate to bathroom and void, meets discharge criteria, discharge instructions given via grain unloader, patient discharged home in wheelchair with all belongings.
== END 2025-06-06 16:26 | disposition home or self-care (01) ==
LOC: SERX 12:21 → S2EX 12:51
PROVIDERS: Emergency Provider Emergency Medicine; PCP Family Medicine; Referring Provider Obstetrics & Gynecology; Visit Provider Obstetrics & Gynecology
PROC: (CPT 58120; principal; 2025-06-06 15:00)
DX: O72.2 Delayed and secondary postpartum hemorrhage (principal); R93.89 Abnormal findings on diagnostic imaging of other specified body structures
CPT/HCPCS: 59160; 36415; 76830; 80053; 81001; 82248; 83735; 84443; 84702; 84703; 85025; 85610; 85730; 86850; 86900; 86901; 87086; A4217; A4649; J1100; J1885; J2210; J2405; J2704; J2765; J3010; J3490; J7120